=== PATIENT | female | born 1935 | race Caucasian/White ===

== ENCOUNTER 2016-11-07 12:24 | Outpatient (CLI) | payer MEDICARE ==
[~2016-11-07] VITALS: Ht 157.5 cm; Wt 72.3 kg
--- NOTE | ~2016-11-07 | HEMODYNAMI ---
PATIENT:SAUL NAVA MEDICAL RECORD: [id number] : 31 LOCATION:[facility] ADMISSION DATE: 11/07/16 Generatedon:11/07/201616:04 Patient name: SAUL NAVA Patient #: [id number] SSN: : 1935 Date of study: 11/07/2016 Page: Of Hemodynamic Procedure Report Patient Data Patient Demographics Procedure consent was obtained First Name: SAUL Gender: Female Last Name: ELIJAH : 1935 [facility] Initial: DARVIN Age: 81 year(s) Patient #: [id number] Race: Additional ID: [id number] Contact details [address]: [address] [place] [address] State: [place] City: [place] Zip code: [address] Past Medical History Allergies Allergen Reaction Date Comments Reported Other 11/07/2016 Metformen,Lopid,Macrobid,Avandia,Utram allergy Admission Admission Data Admission Date: 11/07/2016 Admission Time: 12:24 Admit Source: Other Height (in.): 62 BSA: 1.73 (m2) Height (cm.): 157.48 BMI: 29.08 (kg/m2) Weight (lbs.): 159 Weight (kg.): 72.12 Medications upon Admission Medications Dosage Times Administered Last Remarks per Delivery Day Date and Time Aspirin Yes 11/07/2016 (any) 0:00 Clopidogrel Yes 11/07/2016 0:00 Lab Results Lab Result Date: 11/07/2016 Lab Result Time: 0:00 Biochemistry Name Units Result Min Max Creatinine mg/dl 1 --(--*-)-- 0.6 1.3 CBC Name Units Result Min Max Hemoglobin g/dl 11.8 *-(----)-- 13.5 17.5 Procedure Procedure Types Cath Procedure Diagnostic Procedure LHC LHC w/Coronaries w/Grafts PCI Procedure Coronary Stent Initial Procedure Description Procedure Date Procedure Date: 11/07/2016 Procedure Start Time: 15:18 Procedure End Time: 15:56 Procedure Staff Name Function Bony Arenas MD Performing Physician Adeline Goldstein RT Scrub Landon Rodgers RN Nurse Joby Scott RT Monitor Jacob Cooper RN Public Relations Director Procedure Data Cath Procedure Fluoroscopy Diagnostic fluoroscopy Total fluoroscopy Time: 7.3 time: 7.3 min min Diagnostic fluoroscopy Total fluoroscopy dose: 691 dose: 691 mGy mGy Contrast Material Contrast Material Type Amount (ml) Isovue 300 141 Entry Location Entry Primary Successful Side Size Upsize Upsize Entry Closure Succes sful Closure Location (Fr) 1 (Fr) 2 (Fr) Remarks Device Remarks Femoral Right 5 Fr 6 Fr artery Short Estimated blood loss: 10 ml Diagnostic catheters Device Type Used For End Catheter Placement Cordis 5Fr JL 4.0 Procedure Catheter (MP) Cordis 5Fr 3DRC Catheter Procedure (MP) Cordis Infinity 5Fr AR Procedure MOD Catheter Cordis Infinity 5Fr LCB Procedure catheter Cordis Infinity 5Fr IM Procedure catheter Cordis 5Fr Pigtail Procedure Catheter (MP) Procedure Complications No complications Procedure Medications Medication Administration Route Dosage Oxygen NC 2 l/min Dextrose 50% I.V. 12.5 g 0.9% NaCl I.V. 100 ml/hr Lidocaine 2% added to field 20 Heparin Flush Bag added to field 2 bags (1000units/500ml NS) Fentanyl I.V. 25 mcg Heparin Bolus I.V. 7000 units Fentanyl I.V. 25 mcg Plavix P.O. 600 mg Hemodynamics Rest BSA: 1.73 (m2) HGB: 11.8 (g/dl) O2 Consumption: Estimated: 154.65 (ml/min) O2 Co nsumption indexed: Estimated:89.39 (ml/min/m) Heart Rate: 70 (bpm) Pressure Samples Time Site Value (mmHg) Purpose Heart Use Rate(bpm) 15:32 LV 154/3,20 Snapshot 79 15:32 AO 155/71(107) Pullback 81 15:32 LV 153/5,23 Pullback 81 Gradients Valve Time Site 1 Site 2 Mean SEP/DFP Peak To Heart Use (mmHg) (sec/min) Peak Rate (mmHg) (bpm) Aortic 15:32 LV AO 0 9 0 81 153/5,23 155/71(107) Calculations Valve P-P Mean Valve Index Valve Source Name Gradient Area Flow (cm2) Aortic 0 0 0 0 Snapshots Pre Cath Intra NCS Post Cath Vital Signs Time Heart Resp SPO2 etCO2 [id number] NIBP (mmHg) Rhythm Pain Sedation Rate (ipm) (%) (mmHg) (mmHg) Status Level (bpm) 14:56:23 68 14 100 0 0 144/66(127) NSR 0 (11) 9(A) , No pain 15:00:22 77 14 100 0 0 113/73(100) NSR 0 (11) 9(A) , No pain 15:05:20 80 15 100 0 0 143/74(99) NSR 0 (11) 9(A) , No pain 15:09:42 80 13 100 0 0 137/65(113) NSR 0 (11) 9(A) , No pain 15:14:02 79 14 100 0 0 136/61(103) NSR 0 (11) 9(A) , No pain 15:19:01 80 15 100 0 0 Measuring NSR 0 (11) 9(A) , No pain 15:19:21 82 15 100 0 0 131/77(116) NSR 0 (11) 9(A) , No pain 15:23:37 77 15 100 0 0 137/69(105) NSR 0 (11) 9(A) , No pain 15:27:53 80 14 100 0 0 133/72(111) NSR 0 (11) 9(A) , No pain 15:32:03 72 14 98 0 0 131/77(97) NSR 0 (11) 9(A) , No pain 15:36:19 80 15 98 0 0 123/68(100) NSR 0 (11) 9(A) , No pain 15:40:31 80 15 98 0 0 119/68(89) NSR 0 (11) 9(A) , No pain 15:44:43 77 14 99 0 0 121/66(99) NSR 0 (11) 9(A) , No pain 15:48:55 79 14 98 0 0 126/67(89) NSR 0 (11) 9(A) , No pain 15:53:07 80 15 99 0 0 133/73(110) NSR 0 (11) 9(A) , No pain 15:57:21 80 15 99 0 0 137/74(102) NSR 0 (11) 9(A) , No pain Medications Time Medication Route Dose Verified Delivered Reason Notes Effectiveness by by 14:55:30 Oxygen NC 2 Bony Buffie used for l/min Misael Rodgers RN procedure 14:55:41 Dextrose 50% I.V. 12.5 Bony Buffie Per physician g Misael Rodgers RN 14:55:58 0.9% NaCl I.V. 100 Bony Buffie Per physician ml/hr Misael Rodgers RN 14:56:23 Lidocaine 2% added 20ml Bony Bony for local to vial Misael Arenas MD anesthetic field 14:56:31 Heparin Flush added 2 Bony Bony used for Bag to bags Misael Arenas MD procedure (1000units/500ml field NS) 15:27:51 Fentanyl I.V. 25 Bony Buffie for sedation mcg Misael Rodgers RN 15:44:58 Heparin Bolus I.V. 7,000 Bony Buffie for verifi ed units Misael Rodgers RN anticoagulation with dr arenas 15:45:35 Fentanyl I.V. 25 Bony Buffie for sedation mcg Misael Rodgers RN 16:02:47 Plavix P.O. 600 Bony Buffie for mg Misael Rodgers RN antiplatelet therapy Procedure Log Time Note 14:40:05 Admit Source: Other 14:40:16 Patient Height : 62 cm 14:40:19 Patient Weight : 159 kg 14:40:52 Lab Result : Hemoglobin 11.8 g/dl 14:40:52 Lab Result : Creatinine 1 mg/dl 14:41:28 Jacob Cooper RN sent for patient. Start room use. 14:41:30 Time tracking: Regular hours 14:41:34 Plan of Care:Hemodynamics will remain stable., Cardiac rhythm will remain stable., Comfort level will be maintained., Respiratory function will remain adequate., Patient/ family verbilizes understanding of procedure., Procedure tolerated without complication., Recovers from procedure without complications.. 14:45:53 Patient received from Outpatients to [facility] 2 Alert and oriented. Tansferred to table in Supine position. 14:45:54 Warm blankets applied, and barbie hugger turned on for patient comfort. 14:45:56 Correct patient and procedure confirmed by team. 14:46:00 Signed procedure consent form obtained from patient. 14:46:01 ECG and BP/O2 sat monitors applied to patient. 14:46:03 Full Disclosure recording started 14:55:02 Vital chart was started 14:55:30 Oxygen 2 l/min NC was given by Landon Rodgers RN; used for procedure; 14:55:41 Dextrose 50% 12.5 g I.V. was given by Landon Rodgers RN; Per physician; 14:55:58 0.9% NaCl 100 ml/hr I.V. was given by Landon Rodgers RN; Per physician; 14:56:23 Lidocaine 2% 20ml vial added to field was given by Bony Arenas MD; for local anesthetic; 14:56:31 Heparin Flush Bag (1000units/500ml NS) 2 bags added to field was given by Bony Arenas MD; used for procedure; 14:57:21 Baseline sample Acquired. 14:57:28 Baseline sample Acquired. 14:57:31 Baseline sample Acquired. 14:57:32 Baseline sample Acquired. 14:57:34 Baseline sample Acquired. 14:57:42 Rhythm: sinus rhythm 14:59:42 H&P Date Dictated: 10/31/2016 Within 30 days and on chart., H&P Addendum completed by physician on day of procedure. (MUST COMPLETE FOR ALL OUTPATIENTS). 15:00:09 Pre-procedure instructions explained to patient. 15:00:10 Pre-op teaching completed and patient verbalized understanding. 15:00:11 Family in waiting room. 15:00:13 Patient NPO since Midnight. 15:00:39 Patient allergic to Other allergyMetformen,Lopid,Macrobid,Avandia,Utram 15:00:42 Is the patient allergic to Iodine/contrast media? No. 15:00:44 Is patient on blood thinner?Yes 15:00:48 ACC The patient was administered the following blood thiners within the last 24 hours: ACCAspirin, ACCPlavix 15:00:49 Patient diabetic? Yes. 15:00:50 If diabetic: On Metformin? No 15:00:52 Previous problem with sedation/anesthesia? No ? 15:00:53 Snore? No 15:01:05 Sleep apnea? No 15:01:06 Deviated septum? No 15:01:07 Opens mouth fully? Yes 15:01:07 Sticks out tongue? Yes 15:01:12 Airway obstruction? Yes COPD 15:01:18 Dentures? Yes In tight 15:01:30 Pre procedure: right dorsailis pedis pulse 2+ Normal; easily identifiable; not easily obliterated 15:01:33 Patient pain scale 0/10 ?. 15:01:36 IV patent on arrival in left hand with 0.9% NaCl at [facility]. 15:01:41 Lab results completed and on chart. 15:01:44 Right groin area was prepped with chlora-prep and draped in sterile fashion 15:01:45 Alarms reviewed by R. N. 15:01:45 Sharps counted by scrub and verified by R.N. 15:01:48 Use device set Femoral Dx 15:01:51 Tegaderm 4 x 4 opened to sterile field. 15:01:51 Acist Manifold opened to sterile field. 15:01:52 Acist Hand Control opened to sterile field. 15:01:53 Acist Syringe opened to sterile field. 15:01:53 Bag Decanter opened to sterile field. 15:01:54 Cardinal Cath Pack opened to sterile field. 15:01:54 Terumo 5Fr Oronoco Sheath opened to sterile field. 15:01:55 St [place] 260cm J .035 wire opened to sterile field. 15:01:56 Cordis Infinity 5Fr Multipack catheter opened to sterile field. 15:02:50 ACC Patient presents with Stable Angina CCS Anginal Class 3--Marked limitation of physical activity, angina occurs with ordinary activity.. 15:08:03 Zero performed for pressure channel P1 15:10:19 --------ALL STOP TIME OUT------ 15:10:20 Final Timeout: patient, procedure, and site verified with staff and physician. All members of the team are in agreement. 15:10:23 Right groin site verified by team. 15:10:26 Physical assessment completed. ASA score P 2 - A patient with mild systemic disease as per Bony Arenas MD. 15:10:30 Sedation plan: IV Moderate Sedation Versed, Fentanyl 15:11:09 Zero performed for pressure channel P1 15:11:17 Zero performed for pressure channel P1 15:11:29 Zero performed for pressure channel P1 15:13:38 Baseline sample Acquired. 15:18:50 Procedure started. 15:18:53 Local anesthetic to right femoral artery with Lidocaine 2% by Bony Arenas MD.INITIAL ACCESS ONLY 15:19:14 A 5 Fr sheath was inserted into the Right Femoral artery 15:21:02 A Cordis 5Fr JL 4.0 Catheter (MP) was advanced over the wire and used for Procedure. 15:21:34 LCA angiography performed. 15:22:54 Catheter exchanged over wire. 15:23:36 A Cordis 5Fr 3DRC Catheter (MP) was advanced over the wire and used for Procedure. 15:24:11 RCA angiography performed. 15:25:20 Catheter exchanged over wire. 15:25:24 A Cordis Infinity 5Fr AR MOD Catheter was advanced over the wire and used for Procedure. 15:25:25 Catheter removed. unable to cannulate vessel. 15:26:46 Catheter exchanged over wire. 15:27:51 Fentanyl 25 mcg I.V. was given by Landon Rodgers RN; for sedation; 15:28:00 A Cordis Infinity 5Fr LCB catheter was advanced over the wire and used for Procedure. 15:28:58 SVG to Diag and OM angiography performed. 15:29:02 Catheter exchanged over wire. 15:29:17 A Cordis Infinity 5Fr IM catheter was advanced over the wire and used for Procedure. 15:30:32 MACK to LAD angiography performed. 15:30:56 A Cordis 5Fr Pigtail Catheter (MP) was advanced over the wire and used for Procedure. 15:31:56 LV hemodynamics recorded. 15:31:57 LV gram done using CASTANON 15:32:34 EF : 55 % 15:32:59 Injector settings: Ml/sec: 10, Volume: 20, 15:41:29 Terumo 6Fr Oronoco Sheath opened to sterile field. 15:41:40 Richmond BMW [place] 2 J-tip 300cm 0.014 guide wir opened to sterile field. 15:41:51 High Pressure Extension Tubing (Misael) opened to sterile field. 15:41:59 [employer]Books BasixCompak Inflation Kit opened to sterile field. 15:43:55 Catheter removed. 15:44:08 Sheath upsized to a 6 Fr Short. 15:44:24 6 Fr xblad 3.5 guide catheter was inserted over the wire 15:44:58 Heparin Bolus 7,000 units I.V. was given by Landon Rodgers RN; for anticoagulation; verified with dr arenas 15:45:35 Fentanyl 25 mcg I.V. was given by Landon Rodgers RN; for sedation; 15:45:37 bmw wire advanced. 15:45:50 Wire advanced across lesion. 15:49:21 Cordis 6FR XBLAD 3.5 guide catheter opened to sterile field. 15:50:51 Inflation Number: 1 A Medtronic Integrity 2.5 x 14 stent was prepped and advanced across the 2nd Ob Gail. The stent was deployed at 14 NANCY for 0:10 (min:sec). 15:51:32 ACC PCI Site: OM2 has 80% stenosis. 15:51:37 ACC Pre-intervention GALLITO Flow is 1. 15:51:44 ACC Post-intervention GALLITO Flow is 3. 15:52:36 Stent catheter was removed intact over wire. 15:52:36 Wire removed. 15:52:37 Guide catheter removed. 15:53:13 Cordis 6Fr Exoseal opened to sterile field. 15:54:56 Procedure ended.(Physican Out) 15:55:09 Fluoroscopy time 07.30 minutes. 15:55:19 Fluoroscopy dose: 691 mGy 15:55:19 Flurop Dose total: 691 15:55:23 Contrast amount:Isovue 300 141ml. 15:55:24 Sharps counted by scrub and verified by R.N. 15:55:28 Insertion/operative site no bleeding no hematoma. 15:55:30 Post-op/insertion site Right Femoral artery dressed using a 4 x 4 and Tegaderm. 15:55:34 Post right femoral artery:stable, soft, clean and dry 15:55:36 Post Procedure Pulses reassessed and unchanged 15:55:39 Post-procedure physical assessment completed. ASA score P 2 - A patient with mild systemic disease as per Bony Arenas MD. 15:55:41 Post procedure rhythm: unchanged. 15:55:45 Estimated blood loss: 10 ml 15:55:46 Post procedure instruction explained to patient.Patient verbalizes understanding. 15:55:47 Patient needs reinforcement of post procedure teaching. 15:55:59 Procedure type changed to Cath procedure, Diagnostic procedure, LHC, LHC w/Coronaries w/Grafts, PCI procedure, Coronary Stent Initial 15:56:28 Procedure and supply charges have been captured, reviewed, submitted and are correct. 15:56:30 Procedure Complication : No complications 15:56:33 Vital chart was stopped 15:56:34 See physician's report for complete and final results. 15:56:35 Report given to Outpatients. 15:56:39 Patient transfered to Outpatients with Stretcher. 15:56:41 Procedure ended. 15:56:41 Full Disclosure recording stopped 15:57:01 ACC-PCI Only Patient was given prescriptions, or instructed by Bony Arenas MD to start/continue the following medications upon discharge: Plavix 15:57:06 End room use (Document Last) 16:02:47 Plavix 600 mg P.O. was given by Landon Rodgers RN; for antiplatelet therapy; Intervention Summary Intervention Notes Time ActionType Lesion and Equipment Action# Pressure Duration Attributes Used 15:50:[address] stent 2nd Ob Gail Medtronic 1 14 00:10 Integrity 2.5 x 14 stent Device Usage Item Name Manufacture Quantity Catalog Hospital Part Current Minimal Lot# / Number Charge Number Stock Stock Serial# Code Tegaderm 4 3M 1 1626W [id number] [id number] [id number] 5 x 4 Acist Acist 1 62215 234364 786116 510858 5 Manifold Medical Systems Inc Acist Hand Acist 1 89189 787541 113979 099355 5 Control Medical Systems Inc Acist Acist 1 00629 881986 161108 482459 20 Syringe Medical Systems Inc Bag Microtek 1 2002S 984755 79884 278972 5 DecGlobalPrint Systems Medical Inc. Cardinal Cardinal [address] [address] 15129 413624 5 Cath Pack Health Terumo 5Fr Terumo 1 [id number] 493484 098156 972066 [address] [place] [address] [place] 1 686077 302140 995933 181789 30 260cm J .035 wire Cordis Cardinal 1 [id number] 611558 56981 500510 30 SeeVolution Health 5Fr Multipack catheter Cordis 5Fr Cardinal 1 227284 5 JL 4.0 Health Catheter (MP) Cordis 5Fr Cardinal 1 216325 5 3DRC Health Catheter (MP) Cordis Cardinal 1 [id number] 018953 973516 801306 15 SeeVolution Health 5Fr AR MOD Catheter Cordis Cardinal 1 [id number] 545936 271055 136228 5 Infinity Health 5Fr LCB catheter Cordis Cardinal 1 [id number] 851056 020486 123981 5 Infinity Health 5Fr IM catheter Cordis 5Fr Cardinal 1 101940 5 Pigtail Health Catheter (MP) Terumo 6Fr Terumo 1 RTH763 916617 854387 114473 40 Oronoco Sheath [place] [employer] [place] 1 [id number] 418134 876122 874155 5 [place] 2 Vascular J-tip 300cm 0.014 guide wir High Merit 1 [id number] 863417 32491 264888 10 Pressure Medical Extension Tubing (Arenas) Merit Merit 1 [place] 674002 961553 246153 15 BasixCompak Medical Inflation Kit Cordis 6FR Cardinal 1 [id number] 956808 846389 579292 10 XBLAD 3.5 Health guide catheter Medtronic Medtronic 1 [id number] 193717 382450 9 [id number] Integrity 2.5 x 14 stent Cordis 6Fr Cardinal 1 EX600 421401 015594 304282 10 [employer] Signature Audit [place] Stage Time Signature Unsigned Intra-Procedure 11/07/2016 Joby Scott 4:04:15 PM RT(R) Signatures Monitor : Joyb Scott RT Signature : Date : Time : [id number] [place] [address]
[2016-11-07 13:47] LABS: BASOPHILS 0.1 % (0.0-2.0); EOSINOPHILS 3.2 % (0-7); HEMATOCRIT 36.6 % (36.0-48.0); HEMOGLOBIN 11.8 g/dL (12-16); IMMATURE GRANULOCYTES 0.1 % (0-5); LYMPHOCYTES 23.8 % (15-50); MCH 31.5 pg (26.0-34.0); MCHC 32.2 g/dL (31.0-37.0); MCV 97.6 fL (80.0-100.0); MEAN PLATELET VOLUME 10.3 fL (7.4-10.4); MONOCYTES 8.9 % (2-11); NEUTROPHILS 63.9 % (40-80); PLATELET COUNT 202 10x3/uL (130-400); RBC 3.75 10x6/uL (4.00-5.40); RDW 12.9 % (11.5-14.5); WBC 7.3 10x3/uL (4.8-10.8)
[2016-11-07] MEDS ORDERED: NOVOLOG100 U/M1 SC (13:47)
[2016-11-07] MEDS ORDERED: NITROSTAT0.4 MG SL (13:49)
[2016-11-07] MEDS ORDERED: HYDROCODONE-APA1 TAB PO (13:50)
[2016-11-07] MEDS ORDERED: CYMBALTA20 MG PO (13:50)
[2016-11-07] MEDS ORDERED: NEURONTIN 400400 MG PO (13:50)
[2016-11-07] MEDS ORDERED: PROTONIX40 MG PO (13:51)
[2016-11-07] MEDS ORDERED: BAYER CHEWABLE81 MG PO (13:52)
[2016-11-07] MEDS ORDERED: PLAVIX75 MG PO (13:52)
[2016-11-07] MEDS ORDERED: VITAMIN E400 UNI2 PO (13:53)
[2016-11-07] MEDS ORDERED: SINEMET 25-1001 EACH PO (13:54)
[2016-11-07] MEDS ORDERED: TRIMETHOPRIM100 MG PO (13:55)
[2016-11-07] MEDS ORDERED: LISINOPRIL2.5 MG PO (13:55)
[2016-11-07] MEDS ORDERED: COREG25 MG PO (13:55)
[2016-11-07] MEDS ORDERED: ZANTAC300 MG PO (13:56)
[2016-11-07] MEDS ORDERED: KEPPRA250 MG PO (13:57)
[2016-11-07] MEDS ORDERED: FUROSEMIDE20 MG PO (13:57)
[2016-11-07 14:08] LABS: ANION GAP 9.8 mmol/L (8-16); CALCIUM 8.2 mg/dL (8.5-10.1); POTASSIUM - SERUM 4.8 mmol/L (3.5-5.1)
[2016-11-07 14:09] VITALS: BP 148/63; Ht 157.5 cm; Wt 72.3 kg
--- NOTE | 2016-11-07 14:19 | NUR ---
1415 CALLED ARCHIVES DIRECTOR WITH LOW BLOOD SUGAR, PATIENT AROUSABLE BUT SWEATY, NO ACUTE DISTRESS. WILL AWAIT ORDERS. 1420 RECIEVED ORDER FOR D50W 1/[address] ESQUIVEL AND GIVEN IN IV.
--- NOTE | 2016-11-12 15:45 | OP ---
PATIENT NAME: SAUL NAVA MEDICAL RECORD: [id number] :31 LOCATION:D.CAT ADMISSION DATE: SURGEON: BISHNU ESQUIVEL M.D. DATE OF OPERATION: 11/07/2016 Catheterization Report PROCEDURES PERFORMED: 1. Selective coronary angiography. 2. Left heart catheterization with ventriculogram. 3. PTCA and stent placed in the circumflex. 4. Bypass angiography. 5. Left internal mammary artery injection. INDICATION: An 81-year-old woman presents with recurrent angina. EQUIPMENT USED: Diagnostic 5-Algerian JL4, AR modified catheter, mammary catheter, pigtail catheter. INTERVENTION: A 6-Algerian XB LAD guide, BMW guide wire, 2.5 x 14 mm Integrity stent. TECHNIQUE: A 5-Algerian sheath was inserted in retrograde fashion in the right common femoral artery. Next, selective coronary angiography was performed in standard views using 5-Algerian JL4 and Franko right. Left heart catheterization was performed using pigtail catheter. The internal mammary was selected with internal mammary catheter. Bypass angiography was performed using an AR modified catheter. CORONARY ANATOMY: 1. Left main: Left main trunk is moderate in caliber. It gives rise to the LAD and circumflex. It has no obstruction. 2. LAD: This vessel is 100% occluded in the proximal segment. There is competitive flow seen to this area. 3. Circumflex: This vessel is large in caliber and dominant. The first lateral branch is 100% occluded. There is competitive flow seen to this area. Continuation of the posterolateral branch has an 80% stenosis. 4. Right coronary: This vessel is small in caliber and nondominant. It is angiographically normal. 5. Saphenous vein graft to circumflex. This is actually a skip graft touching down on the first diagonal branch as well as the lateral branch and circumflex. Both limbs are widely patent. However, this graft does not fill the AV continuation of the circumflex. 6. Left internal mammary artery to LAD: This graft is widely patent throughout its course. 7. Left ventricle: Left ventricle is normal in size and function. No wall motion abnormalities are seen. Estimated ejection fraction is 55%. DESCRIPTION OF INTERVENTION: It was felt the patient's symptoms are secondary to the distal lesion in the circumflex, which is not protected by the bypass graft. At this point, a 6-Algerian sheath was inserted in retrograde fashion in the right common femoral artery. A 100 units per kilogram of heparin was infused. A 6-Algerian XB LAD guide was advanced and engaged in the left main coronary artery. Next, a BMW wire was placed in the distal circumflex. The posterolateral branch was stented with a 2.5 x 14 mm Integrity stent at 14 OPERATIVE REPORT [id number] HEAD,SAUL palomo. Injection reveals stent to be widely patent with 0% residual stenosis. There is marked improvement in distal flow. At this point, the wire and guide were removed. IMPRESSION: Successful percutaneous transluminal coronary angioplasty and stent in the circumflex with 0% residual stenosis. TRANSINT:[id number] Voice Confirmation ID: [id number] DOCUMENT ID: [id number] BISHNU ESQUIVEL M.D. at 1545 CC: [id number] DICTATION DATE: 11/07/16 1600 INTERIOR DESIGN FACULTY MEMBER: 11/07/16 1613 DEP CLI 11/07/16 [id number] [place] [address]
== END 2016-11-07 20:05 | disposition home or self-care (01) ==
LOC: D.CATH 12:24
PROVIDERS: Internal Medicine Cardiovascular Disease
DX: I25.119 Atherosclerotic heart disease of native coronary artery with unspecified angina pectoris (principal); Z95.1 Presence of aortocoronary bypass graft

== ENCOUNTER → 2016-11-27 12:28 | Outpatient (CLI) | payer MEDICARE ==
[2016-11-07 14:09] VITALS: BMI 29.1
[~2016-11-27 12:28] MED LIST: BAYER CHEWABLE81 MG PO; COREG25 MG PO; CYMBALTA20 MG PO; FUROSEMIDE20 MG PO; HYDROCODONE-APA1 TAB PO; KEPPRA250 MG PO; LISINOPRIL2.5 MG PO; NEURONTIN 400400 MG PO; NITROSTAT0.4 MG SL; NOVOLOG100 U/M1 SC; PLAVIX75 MG PO; PROTONIX40 MG PO; SINEMET 25-1001 EACH PO; TRIMETHOPRIM100 MG PO; VITAMIN E400 UNI2 PO; ZANTAC300 MG PO
--- NOTE | 2016-12-09 07:17 | EEG ---
PATIENT:SAUL NAVA DATE OF SERVICE: 11/27/16 MEDICAL RECORD: [id number] DATE OF : [birth year] LOCATION: [facility] ADMISSION DATE: 11/27/16 REFERRING PHYSICIAN: INTERPRETING PHYSICIAN: AURA OLIVA MD DATE OF SERVICE: 11/27/2016 Referred by myself as an outpatient. ELECTROENCEPHALOGRAM NUMBER: [id number]. DATE OF EXAMINATION: 11/27/2016 at 1:00 p.m. DATE OF : 1935. TECHNICAL DATA: This electroencephalographic recording consisted of approximately 20 minutes of data collection utilizing the international 10/20 system of electrode placement and both referential and non-referential montages. Sixteen channels of electrocerebral recording are accompanied by a 17th channel dedicated to the electrocardiographic rhythm and to 2 channels of electromyographic recording. Recording is performed in the awake and drowsy states utilizing activation by photic stimulation. ELECTROENCEPHALOGRAPHIC DATA: The awake state comprises only approximately 10% of the recorded electrocerebral activity. Electromyographic artifact is prominent and rapid eye movements are seen. The posterior dominant background consists of a symmetric semi-arrhythmic waxing and waning 7-8 Hz alpha activity, which is suppressed by eye opening. The drowsy state comprises the remaining portion of the recorded electrocerebral activity. Electromyographic artifact is diminished and rapid eye movements are not seen. The posterior dominant background tends more towards 7 Hz. No abnormal or focal slowing is identified. No epileptiform discharges are seen. Photic stimulation induces no abnormal change in the recorded electrocerebral activity. INTERPRETATION: Normal (awake and drowsy). This is a normal electroencephalographic recording. TRANSINT:[id number] Voice Confirmation ID: [id number] DOCUMENT ID: [id number] AURA OLIVA MD at 0717 CC: [id number] DICTATION DATE: 11/28/16 0903 EQUIPMENT VALIDATION SPECIALIST: 11/28/16 1048 DEP CLI 11/27/16 [id number] [place] [address]
== END | disposition home or self-care (01) ==
LOC: D.CN 12:28
DX: G40.802 Other epilepsy, not intractable, without status epilepticus (principal); G20 Parkinson's disease; G60.9 Hereditary and idiopathic neuropathy, unspecified

== ENCOUNTER → 2016-12-19 18:02 | Outpatient (CLI) | payer MEDICARE ==
[2016-11-07 14:09] VITALS: BMI 29.1
== END | disposition home or self-care (01) ==
LOC: D.CT 18:02
DX: N39.0 Urinary tract infection, site not specified (principal)

== ENCOUNTER → 2017-05-31 14:19 | Outpatient (CLI) | payer MEDICARE ==
[2016-11-07 14:09] VITALS: BMI 29.1
[2017-05-31 15:06] LABS: APPEARANCE CLEAR (CLEAR); COLOR YELLOW (YELLOW)
[2017-05-31 15:07] LABS: BILIRUBIN NEGATIVE (NEGATIVE); GLUCOSE NEGATIVE (NEGATIVE); KETONE NEGATIVE (NEGATIVE); LEUKOCYTE ESTERASE NEGATIVE (NEGATIVE); NITRITE NEGATIVE (NEGATIVE); PROTEIN TRACE mg/dL (NEGATIVE); UROBILINOGEN NORMAL (NORMAL)
== END | disposition home or self-care (01) ==
LOC: D.LABREF 14:19
PROVIDERS: Student in an Organized Health Care Education/Training Program
DX: N39.0 Urinary tract infection, site not specified (principal)

== ENCOUNTER 2017-06-04 15:50 | Inpatient (IN) | payer MEDICARE ==
[~2017-06-04] VITALS: Ht 157.5 cm; Wt 73.6 kg
[2017-06-04 17:05] LABS: BASOPHILS 0.1 % (0-2); EOSINOPHILS 3.3 % (0-7); HEMATOCRIT 33.6 % (36.0-48.0); HEMOGLOBIN 11.1 g/dL (12-16); IMMATURE GRANULOCYTES 0.2 % (0-5); MCH 31.5 pg (26.0-34.0); MCV 95.5 fL (80.0-100.0); MEAN PLATELET VOLUME 9.5 fL (7.4-10.4); NEUTROPHILS 68.4 % (40-80); PLATELET COUNT 162 10x3/uL (130-400); RBC 3.52 10x6/uL (4.00-5.40); RDW 12.5 % (11.5-14.5); WBC 8.8 10x3/uL (4.8-10.8)
[2017-06-04 17:23] LABS: INR 0.99 (0.85-1.17)
[2017-06-04 17:24] LABS: APTT 29.3 SECONDS (22.8-39.4)
[2017-06-04 17:31] LABS: ALBUMIN 3.3 g/dL (3.4-5.0); ALKALINE PHOSPHATASE 85 U/L (46-116); ALT (SGPT) 14 U/L (10-68); BILIRUBIN - TOTAL 0.34 mg/dL (0.2-1.3); CALC OSMOLALITY 284 mosm/kg (275-300); CARBON DIOXIDE 33.2 mmol/L (21.0-32.0); CHLORIDE - SERUM 105 mmol/L (98-107); CREATININE - SERUM 0.7 mg/dL (0.6-1.3); POTASSIUM - SERUM 3.7 mmol/L (3.5-5.1); PROTEIN - SERUM 6.5 g/dL (6.4-8.2); SODIUM 143 mmol/L (136-145); UREA NITROGEN 17 mg/dL (7-18); eGFR NON AFRICAN AMERICAN 84 mL/min (90-120)
[2017-06-04 17:32] LABS: GLUCOSE 70 mg/dL (74-106)
[2017-06-04 17:45] LABS: CKMB 0.4 U/L (0.0-3.6); CREATINE KINASE 40 UL (21-215)
[2017-06-04 17:49] LABS: TROPONIN-I < 0.017 ng/mL (0.000-0.060)
[2017-06-04 18:36] LABS: APPEARANCE CLOUDY (CLEAR); COLOR YELLOW (YELLOW)
[2017-06-04 18:37] LABS: BILIRUBIN NEGATIVE (NEGATIVE); GLUCOSE NEGATIVE (NEGATIVE); KETONE NEGATIVE (NEGATIVE); LEUKOCYTE ESTERASE NEGATIVE (NEGATIVE); NITRITE NEGATIVE (NEGATIVE); PROTEIN NEGATIVE (NEGATIVE); SPECIFIC GRAVITY 1.025 (1.005-1.020); UROBILINOGEN NORMAL (NORMAL)
--- NOTE | 2017-06-04 21:40 | NUR ---
PT ARRIVED TO ROOM WITH ER NURSE, PT ALERT AND ORIENTED.
--- NOTE | 2017-06-05 01:50 | NUR ---
PT C/O PAIN IN LEG, A LEVEL OF 7, PAGE AIRCRAFT BODY REPAIRER.
--- NOTE | 2017-06-05 01:58 | NUR ---
NURSE PRACTICAL CALL BACK AND PRESCRIBED TYLENOL 500 MG FOR PT. GIVEN TYLENOL 500 MG FOR PT.
--- NOTE | 2017-06-05 03:49 | NUR ---
REST QUIETLY IN BED, EYE CLOSE, CALL LIGHT WITHIN REACH.
[2017-06-05 04:00] VITALS: BP 193/78
--- NOTE | 2017-06-05 05:01 | NUR ---
CREDIT OR LOANS OFFICER REPORT PT'S BP IS 193/78, AND HAS A LOT OF PAIN, PAGE PHOTOGRAPHIC AIDE, CHRIS ESPITIA.
--- NOTE | 2017-06-05 05:23 | NUR ---
NURSE PRACTITIONER CALL BACK, AND ORDER LISINOPRIL 2.5MG AND HYDROCODONE 10 FOR PT.
--- NOTE | 2017-06-05 06:21 | NUR ---
PT LYING IN BED, EYES CLOSED, RESPIRATIONS EVEN AND UNLABORED. CONTINUE TO MONITOR CLOSELY. BED LOW, CALL LIGHT IN REACH, SIDE RAILS X 2, HOB 30 DEGREES.
[2017-06-05 06:41] VITALS: BP 155/63; BMI 28.2
[2017-06-05 08:00] VITALS: BP 166/64
--- NOTE | 2017-06-05 08:09 | NUR ---
[facility]- RECEIVED REPORT FROM AIR CONDITIONING SHEET METAL INSTALLER NURSE JOSE ALFREDO. PT IS CURRENTLY LAYING IN BED ON BACK WITH EYES OPEN WATCHING TV. PT DENIES ANY PAIN BUT STATES SHE HAS HEADACHE. ON 02 AT 2L VIA NC. ON MONITOR SHOWING SR, HR 61. IV SEEN TO LEFT AC WITH NS RUNNING AT 75CC. NO NEED AT CURRENT TIME. WILL CONTINUE TO MONITOR AND CONTINUE WITH PLAN OF CARE.
[2017-06-05 12:00] VITALS: BP 115/70
--- NOTE | 2017-06-05 12:12 | NUR ---
PTS CAME UP TO NURSES STATION UPSET THAT PT HAS NOT RECEIVED HER HOME MEDICATIONS. I INFORMED PTS (JUST LIKE I EXPLAINED TO PT EARLIER ON SHIFT) THAT THE DOCTOR HAS TO MAKE ROUNDS AND SEE PT AND THEN THE DOCTOR WILL RESTART HOME MEDICATIONS THAT THE DOCTOR WANTS PT TO TAKE. STATES, "WELL CAN WE GIVE HER HER MEDICATIONS". OBED CLAIRE, UNIT MAMAGER ON UNIT RIGHT BESIDE THIS NURSE PTS IS STATING THIS TO US. OBED CLAIRE, ROLL UP HELPER INFORMS PTS THAT NO, IT IS NOT A GOOD IDEA TO GIVE PT HER MEDICATIONS DUE TO DOCTOR NOT SEEING PT YET. BROUGHT LIST OF HOME MEDICATIONS TO NURSES STATION. OBED CLAIRE, ROLL UP HELPER IN PTS ROOM NOW GOING OVER HOME MEDICATIONS AND UPDATED HOME MED REC LIST. WILL CONTINUE TO MONITOR.
[2017-06-05] MEDS ORDERED: KLOR-CON/EF 2525 MEQ PO (12:16)
[2017-06-05] MEDS ORDERED: LANTUS SOL100 UNIT/1 SC (12:21)
--- NOTE | 2017-06-05 12:46 | NUR ---
OBED CLAIRE, MASTER AUTOMOTIVE TECHNICIAN STATES PT IS IN ROOM DRY HEAVING. THIS NURSE GAVE PT PRN ZOFRAN ORDERED. PT STATES SHE IS SWEATING BECAUSE IT IS SO HOT IN HER ROOM. I TURNED AC DOWN. PT DENIES CHEST PAIN. EKG ORDERED AND PLACED IN CHART. CALL LIGHT IS IN REACH. WILL CONTINUE TO MONITOR.
[2017-06-05 12:47] LABS: CKMB 0.4 U/L (0.0-3.6); CREATINE KINASE 34 UL (21-215)
[2017-06-05 12:49] LABS: TROPONIN-I < 0.017 ng/mL (0.000-0.060)
[2017-06-05 13:13] VITALS: Ht 157.5 cm; Wt 73.6 kg
--- NOTE | 2017-06-05 15:00 | NUR ---
PT IS CURRENTLY SITTING UP IN BED WITH EYES OPEN RESTING. WILLARD SPEECH PATHOLOGY IN ROOM NOW ASSISTING PT ON IPAD WITH INTERNET. PT DENIES ANY NEED AT CURRENT TIME. CALL LIGHT IS IN REACH. WILL CONTINUE TO MONITOR.
[2017-06-05 16:00] VITALS: BP 104/68
--- NOTE | 2017-06-05 16:12 | NUR ---
SCD'S PLACED ON PT.
--- NOTE | 2017-06-05 17:10 | NUR ---
SECOND IV STARTED PER PT REQUEST. 22G IV INSERTED INTO PTS RIGHT HAND X1 STICK. TOLERATED WELL. IV FLUIDS STARTED TO NEW IV TO RIGHT HAND. IV TO LEFT AC SALINE LOCKED.
[2017-06-05 18:13] LABS: CKMB 0.2 U/L (0.0-3.6); CREATINE KINASE 34 UL (21-215); TROPONIN-I < 0.017 ng/mL (0.000-0.060)
--- NOTE | 2017-06-05 18:40 | NUR ---
PT IS CURRENTLY SITTING UP IN BED WITH EYES OPEN RESTING. DAUGHTER AND SON-IN-LAW IN ROOM WITH PT. SON-IN-LAW AND DAUGHTER ARE C/O OF [employer]UE[employer] CHA[employer] NOT BEING IN ROOM. DAUGHTER STATES "WE HAD ONE OUT IN THE CHAMBERS EARLIER". I INFORMED DAUGHTER THAT THE CHAIR WAS ACTUALLY BEING USED BY A DIFFERENT ROOM THAT HAD INITALLY HAD THAT SPECIFIC CHAIR AND I WOULD GET THEM ANOTHER ONE. WENT AND RECEIVED ANOTHER CHAIR THAT WAS NOT BEING USED. DAUGHTER AND SON-IN-LAW THANKED ME. NO FURTHER NEED AT CURRENT TIME. DR. DELGADILLO IS NOW IN ROOM. WILL CONTINUE TO MONITOR.
[2017-06-05 19:00] VITALS: BP 172/72
--- NOTE | 2017-06-05 20:12 | NUR ---
PORFIRIO WITH RADIOLOGY CALLED TO VERIFY NEW ORDER FROM DR. DELGADILLO FOR MRI OF THE BRAIN W/WO CONTRAST. I REVIEWED THE REASONS FOR THE ORDER WITH PORFIRIO AT WHICH TIME SHE STATED THAT IT WAS ORDERED ROUTINE AND WOULD DO IT TOMORROW.
[2017-06-06] VITALS: BP 171/76
[2017-06-06 00:03] LABS: CKMB 0.4 U/L (0.0-3.6); CREATINE KINASE 39 UL (21-215)
[2017-06-06 00:06] LABS: TROPONIN-I < 0.017 ng/mL (0.000-0.060)
--- NOTE | 2017-06-06 03:21 | NUR ---
NURSE ROUNDS 06/05/17 20:00 - PT LYING IN BED, AWAKE, ALERT, ORIENTED, ON HER IPAD, C/O RIGHT HAND IV PLACEMENT. I TAPED IV TUBING TO HAND WHICH HELPED. PT ALSO REQUESTED TO HAVE HER SCD'S REMOVED AND SOCKS OFF ONCE IN BED FOR THE NIGHT, STATING SHE IS TOO HOT AND THEY CONSTRICT HER TOO MUCH. CONTINUE TO MONITOR CLOSELY. BED LOW, CALL LIGHT IN REACH, SIDE RAILS X 2, HOB 30 DEGREES. PT TO ALL WITH ANY NEEDS.
[2017-06-06 04:00] VITALS: BP 168/68
--- NOTE | 2017-06-06 05:16 | NUR ---
PT RESTING COMFORTABLY, EASILY ROUSABLE TO VERBAL STIMULI. CONTINUE TO MONITOR CLOSELY.
[2017-06-06 05:56] LABS: BASOPHILS 0.1 % (0-2); EOSINOPHILS 2.8 % (0-7); HEMATOCRIT 33.3 % (36.0-48.0); IMMATURE GRANULOCYTES 0.1 % (0-5); LYMPHOCYTES 23.8 % (15-50); MCH 31.4 pg (26.0-34.0); MCV 95.1 fL (80.0-100.0); MEAN PLATELET VOLUME 9.8 fL (7.4-10.4); MONOCYTES 8.5 % (2-11); NEUTROPHILS 64.7 % (40-80); PLATELET COUNT 153 10x3/uL (130-400); RDW 12.5 % (11.5-14.5); WBC 6.7 10x3/uL (4.8-10.8)
[2017-06-06 06:21] LABS: ALBUMIN 2.8 g/dL (3.4-5.0); ANION GAP 8.2 mmol/L (8-16); BILIRUBIN - TOTAL 0.4 mg/dL (0.2-1.3); CALCIUM 7.3 mg/dL (8.5-10.1); CARBON DIOXIDE 30.6 mmol/L (21.0-32.0); CREATININE - SERUM 0.8 mg/dL (0.6-1.3); POTASSIUM - SERUM 3.8 mmol/L (3.5-5.1); PROTEIN - SERUM 5.5 g/dL (6.4-8.2)
--- NOTE | 2017-06-06 07:39 | NUR ---
0730- DR. OLIVA ON UNIT. DR. OLIVA STATES TO CHECK PTS BS AND BP NOW DUE TO PT NOT FEELING WELL AND PTS SKING BEING CLAMMY. THIS NURSE CHECKED PTS BS WHICH IS 127 AND BLOOD PRESSURE AT REST IS 158/85. PT IS UP TO BATHROOM NOW. DR. OLIVA ON UNIT, INFORMED HIM OF THIS. NO NEW ORDERES RECEIVED.
[2017-06-06 08:00] VITALS: BP 173/79
--- NOTE | 2017-06-06 08:00 | NUR ---
0715- AM ROUNDING- RECEIVED REPORT FROM TEN PIN BOWLING CENTRE MANAGER NURSE OTTO. PT IS CURRENTLY LAYING IN BED ON BACK WITH EYES CLOSED RESTING. ON 02 AT 2L VIA NC. ON MONITOR SHOWING SR, HR 73. IV SEEN TO LEFT AC THAT IS CURRENTLY SALINE LOCKED. SECOND IV SEEN TO RIGHT HAND THAT IS CURRENTLY SALINE LOCKED. CALL LIGHT IS IN REACH. NO NEED AT CURRENT TIME. WILL CONTINUE TO MONITOR AND CONTINUE WITH PLAN OF CARE.
--- NOTE | 2017-06-06 10:40 | NUR ---
PT TO MRI VIA WHEELCHAIR.
--- NOTE | 2017-06-06 11:29 | NUR ---
PT BACK FROM MRI VIA WHEELCHAIR.
--- NOTE | 2017-06-06 11:34 | NUR ---
Patient Name: SAUL NAVA Admission Status: ER Accout number: [id number] Admission Date: 06-04-2017 : 1935 Admission Diagnosis: Attending: DNAII Current LOS: 2 Anticipated DC Date: Planned Disposition: Home Primary Insurance: MEDICARE A & B LATE ENTRY FROM 06-05-17: Discharge Planning Comments: * Is the patient Alert and Oriented? Yes 0 * How many steps to enter\exit or inside your home? NONE 0 * PCP DR. CHRISTIE 0 * Pharmacy [facility] 0 * Preadmission Environment Home with Family 0 * ADLs Independent 0 * Equipment Nebulizer Oxygen Rolling Walker Wheelchair 0 * Other Equipment HOME AND PORTABLE OXYGEN [facility] - MEDICAL EQUIPMENT PROVIDER PREFERENCE 0 * List name and contact numbers for known caregivers / representatives who currently or will assist patient after discharge: ARIANNA COSTA, DAUGHTER, [place] [phone] 0 * Community resources currently utilized None 0 * Please name any agencies selected above. NONE 0 * Additional services required to return to the preadmission environment? No 0 * Can the patient safely return to the preadmission environment? Yes 0 * Has this patient been hospitalized within the prior 30 days at any hospital? No 0 CM MET WITH PT AND DAUGHTER IN ROOM TO DISCUSS DISCHARGE PLANNING AND NEEDS. PT REPORTS LIVING AT HOME INDEPENDENTLY WITH HER ADULT DAUGHTER AND SON IN LAW. PT HAS ALL NEEDED MEDICAL EQUIPMENT FROM [facility] AND NO OUTSIDE SERVICES ASSISTING IN THE HOME. CM DISCUSSED AVAILABILITY OF HOME HEALTH, REHAB SERVICES AND MEDICAL EQUIPMENT. PT DENIES DISCHARGE NEEDS, REPORTS HER DAUGHTER WILL PICK HER UP FOR DISCHARGE HOME. PT AND DAUGHTER REPORTED SOME PROBLEMS WITH PT'S CARE SINCE ARRIVAL FROM EMERGENCY ROOM. CM PROVIDED INFORMATION TO BEDSIDE NURSE AND UNIT TUBULAR STOCK GLASS BULB MACHINE FORMER. PT PLANS TO DISCHARGE HOME WITH DAUGHTER, DENIES NEEDS AT THIS TIME. CM TO FOLLOW AND ASSIST NEEDED. [employer] Fire Support Planner: Jeremiah Lindsay
[2017-06-06 12:00] VITALS: BP 134/55
--- NOTE | 2017-06-06 14:36 | NUR ---
PT BACK FROM BARIUM SWALLOW VIA WHEELCHAIR. WILL HOOK PT UP TO IV FLUIDS. WILL CONTINUE TO MONITOR.
[2017-06-06 16:00] VITALS: BP 156/69
--- NOTE | 2017-06-06 18:16 | NUR ---
PT IS CURRENTLY SITTING UP IN BED WITH EYES OPEN WATCHING TV. PT DENIES ANY NEED AT CURRENT TIME. WILL CONTINUE TO MONITOR.
[2017-06-06 19:00] VITALS: BP 126/57
--- NOTE | 2017-06-06 20:52 | NUR ---
PT LYING IN BED, AWAKE, ALERT, ORIENTED, DENIES ANY NEEDS AT THIS TIME. BRIM PLATER OBTAINING V/S AT THIS TIME, WNL. CONTINUE TO MONITOR CLOSELY. BED LOW, CALL LIGHT IN REACH, SIDE RAILS X 2, HOB 30 DEGREES.
[2017-06-07 04:00] VITALS: BP 157/71
[2017-06-07 06:40] LABS: BASOPHILS 0.2 % (0-2); EOSINOPHILS 3.1 % (0-7); HEMATOCRIT 31.8 % (36.0-48.0); HEMOGLOBIN 10.4 g/dL (12-16); LYMPHOCYTES 24.8 % (15-50); MCH 31.3 pg (26.0-34.0); MCHC 32.7 g/dL (31.0-37.0); MCV 95.8 fL (80.0-100.0); MEAN PLATELET VOLUME 9.6 fL (7.4-10.4); MONOCYTES 8.3 % (2-11); NEUTROPHILS 63.6 % (40-80); PLATELET COUNT 128 10x3/uL (130-400); RBC 3.32 10x6/uL (4.00-5.40); RDW 12.4 % (11.5-14.5); WBC 6.4 10x3/uL (4.8-10.8)
--- NOTE | 2017-06-07 07:00 | NUR ---
REPORT RECEIVED FROM OFF GOING NURSE. PT IN BED. ALERT AND ORIENTED X4. DENIES PAIN AND SOB. BREATHING NORMAL AND UNLABORED. ON O2 AT 2L VIA NC. HAS AN IV IN LEFT AC. BLOOD NOTED IN LINE. IV DC WITH TIP INTACT AND PRESSURE DRESSING APPLIED. RIGHT HAND HAS AN IV WITH A C/D/I DRESSING. NS INFUSING AT 75ML/H. 0 NEEDS VOICED AT THIS TIME. 0 S/SX OF DISTRESS/DISCOMFORT NOTED. CALL LIGHT IN REACH. WILL CONT POC
[2017-06-07 07:05] LABS: ANION GAP 5.9 mmol/L (8-16); BILIRUBIN - TOTAL 0.42 mg/dL (0.2-1.3); CALCIUM 7.7 mg/dL (8.5-10.1); CARBON DIOXIDE 33.9 mmol/L (21.0-32.0); CREATININE - SERUM 0.8 mg/dL (0.6-1.3); POTASSIUM - SERUM 3.8 mmol/L (3.5-5.1)
[2017-06-07 08:00] VITALS: BP 159/59
--- NOTE | 2017-06-07 13:43 | NUR ---
Patient Name: SAUL Roque [place] Encounter No: [id number] : 1935 Primary Insurance: MEDICARE A & B Anticipated DC Date: 06-07-2017 Planned Disposition: Home DCP follow-up note: CM RECEIVED DISCHARGE ORDER, MET WITH PT IN ROOM, DISCUSSED AVAILABILITY OF HOME HEALTH, REHAB SERVICES AND MEDICAL EQUIPMENT. PT DENIES DISCHARGE NEEDS, IN AGREEMENT WITH DISCHARGE HOME TODAY, REPORTS HER DAUGHTER IS AWARE OF DISCHARGE TODAY AND WILL PICK HER UP FOR DISCHARGE HOME. IMPORTANT MESSAGE FROM MEDICARE PROVIDED AND EXPLAINED. Jeremiah Lindsay, CASE MANAGEMENT
--- NOTE | 2017-06-07 15:15 | NUR ---
IV DC WITH CATHETER TIP INTACT. DC PAPER WORK SIGNED. QUESTIONS ANSWERED AND DISCHARGE TEACHING AND MEDICATION TAUGHT. DAUGHTER HERE WITH PT TO DRIVE PT HOME. LEFT VIA W/C WITH VOULENTEER. IN A PLEASENT MOOD. BREATHING NORMAL AND UNLABORED. 0 S/SX OF DISTRESS/DISCOMFORT NOTED.
--- NOTE | 2017-06-08 17:14 | DS ---
PATIENT:SAUL NAVA :[birth year] MEDICAL RECORD: [id number] DISCHARGE SUMMARY ADMISSION DATE: 06/04/17 DISCHARGE DATE: 06/07/17 DATE OF ADMISSION: 06/04/2017 DATE OF DISCHARGE: 06/07/2017 ADMITTING DIAGNOSES: 1. Urinary tract infection. 2. Dizziness. 3. Weakness. 4. Hypoglycemia. 5. Anemia of unknown etiology. 6. History of seizure. 7. History of cerebrovascular accident. 8. History of coronary artery disease. 9. History of hypertension. 10. History of Parkinson disease. 11. History of diabetes. 12. History of chronic pain. HOSPITAL COURSE: This is a lady of Dr. Rondon admitted with diagnoses as outlined above. Details are well-outlined in the history of the present illness, H&P. All events, lab procedures and diagnostic testing are well documented in the records. The patient was admitted, started on IV antibiotics, diabetic meds held as she was having some nausea initially. She was placed on Accu-Chek blood sugars and low resistant sliding scale insulin. Appropriate other home medicines continued, placed on SCDs for DVT prophylaxis and PPI for GI prophylaxis. CONSULTANTS: Dr. Mathur, infectious disease. Her recommendations were followed. Dr. Valdez, neurology. His recommendations were followed. Her appetite improved. Home medicines were resumed. Lantus dose was cut down to prevent any further hyperglycemia. Labs and volume were closely followed. Chest x-ray showing mild chronic interstitial lung disease without any acute cardiopulmonary disease. CT of the head without contrast, no acute intracranial abnormality. There was some stable encephalomalacia in the left frontal lobe from old infarct and generalized cerebral atrophy. Please refer to report. MRI of the brain showing no acute abnormality, no hemorrhage, no recent infarct. Please refer to report. There was a 45-mm meningioma in the anterior cranial fossa without any significant associated mass effect or adjacent parenchymal edema. She had some chronic microvascular ischemic changes with diffuse cerebral volume loss and chronic left frontal lobe infarct and associated encephalomalacia. Again, please refer to report. Bedside swallow was done by our speech therapist. Barium swallow was recommended, it showed no stenosis or structural lesion seen. There were some mild tertiary contractions suggestive of some dysmotility, but there was otherwise normal passage of contrast to the esophagus. She has been up and ambulating. She has had no further spells. She is afebrile, vital signs stable. Dr. Mathur feels that she has asymptomatic bacteriuria and does not recommend antibiotic treatment at this time. She is stable for dismissal home today, afebrile, pulse 74, respirations 18, blood pressure 159/59 and O2 sat 100% on room air. She has ambulated in the [place] DISCHARGE SUMMARY REPORT [id number] [place],SAUL B[place]ON with physical therapy. She has ambulated to the bathroom and back independently with no problems. Glucose 145, 138, 155, 194 and 127. White count 6, hemoglobin 10.4 and platelets 128. Sodium 142, potassium 3.8, chloride 106, CO2 of 33.9, BUN 15 and serum creatinine 0.8. AST 14, ALT 8, alkaline phosphatase 66, bilirubin 0.42 and albumin 3. She is dismissed home. Please refer to med rec. Diagnoses are the same as above. They also include asymptomatic bacteriuria. Her symptoms are likely related to hypoglycemia, impossible uncontrolled hypertension at that time, she has coronary artery disease, Parkinson's, diabetes, history of cerebrovascular accident and transient ischemic attacks and per Dr. Valdez, stress associated with travels with multiple losses. Supportive care recommended from his standpoint. Please refer to both student union consultant's well documented notes. Greater than 30 minutes was spent on this discharge. We will have her follow up with house calls. TRANSINT:[id number] Voice Confirmation ID: [id number] DOCUMENT ID: [id number] Dictated By: CHRIS ESPITIA RN I have interviewed/examined the above patient and agree with these documented findings. NARCISA MACDONALD MD at 1714 CC: [id number] DICTATION DATE: 06/07/17 1243 HOISTING MACHINE OPERATOR: 06/08/17 0618 DIS IN 06/07/17 [facility] [address] [place] [address]
== END 2017-06-07 15:15 | disposition home or self-care (01) | DRG 639 ==
LOC: D.ER 15:50 → D.M2 19:51
PROVIDERS: Nurse Practitioner Acute Care; ADMIT Emergency Medicine
DX: E11.649 Type 2 diabetes mellitus with hypoglycemia without coma (principal); I10 Essential (primary) hypertension; R82.71 Bacteriuria; E86.0 Dehydration; R41.0 Disorientation, unspecified; I25.10 Atherosclerotic heart disease of native coronary artery without angina pectoris; G20 Parkinson's disease; K21.9 Gastro-esophageal reflux disease without esophagitis; D64.9 Anemia, unspecified; G93.89 Other specified disorders of brain; Z79.4 Long term (current) use of insulin; Z86.73 Personal history of transient ischemic attack (TIA), and cerebral infarction without residual deficits; Z95.5 Presence of coronary angioplasty implant and graft; Z95.1 Presence of aortocoronary bypass graft

== ENCOUNTER → 2017-06-19 12:20 | Outpatient (CLI) | payer MEDICARE ==
[2017-06-05 13:13] VITALS: BMI 28.1
--- NOTE | ~2017-06-19 | EEG ---
PATIENT:SAUL NAVA DATE OF SERVICE: 06/19/17 MEDICAL RECORD: [id number] DATE OF : [birth year] LOCATION: [facility] ADMISSION DATE: 06/19/17 REFERRING PHYSICIAN: INTERPRETING PHYSICIAN: AURA OLIVA MD DATE OF SERVICE: 06/19/2017 Referred by myself as an outpatient. ELECTROENCEPHALOGRAM NUMBER: [id number] DATE OF EXAMINATION: 06/19/2017 at 1:20 p.m. DATE OF : 1935 TECHNICAL DATA: This electroencephalographic recording consists of approximately 20 minutes of data collection utilizing the international 10/20 system of electrode placement and both referential and non-referential montages. Sixteen channels of electrocerebral recording are accompanied by a 17th channel dedicated to the electrocardiographic rhythm and 2 channels of electromyographic recording. Recording is performed in the awake and drowsy states utilizing activation by photic stimulation. ELECTROENCEPHALOGRAPHIC DATA: The awake state comprises approximately 30% of the recorded electrocerebral activity. Electromyographic artifact is prominent and rapid eye movements are seen. The posterior dominant background consists of a symmetric, rhythmic, waxing and waning, 8-9 Hz alpha activity which is suppressed by eye opening. The drowsy state comprises the remaining portion of the recorded electrocerebral activity. Electromyographic artifact is diminished and rapid eye movements are not seen. The posterior dominant background is at times relatively suppressed. Also seen is an intermittent irregular generalized and symmetric 2-3 Hz delta slowing which occurs for periods of 1-2 seconds approximately once every 1-2 pages. No abnormal or focal slowing is identified. No epileptiform discharges are seen. Photic stimulation induces no abnormal change in the recorded electrocerebral activity. INTERPRETATION: Normal (awake and drowsy). This is a normal electroencephalographic recording. TRANSINT:[id number] Voice Confirmation ID: [id number] DOCUMENT ID: [id number] ELECTROENCEPHALOGRAM REPORT [id number] SAUL NAVA AURA OLIVA MD CC: [id number] DICTATION DATE: 06/20/17 0640 NETWORK SECURITY ADMINISTRATOR: 06/20/17 2301 DEP CLI 06/19/17 [facility] [address] [place] [address]
[~2017-06-19 12:20] MED LIST changes: +KLOR-CON/EF 2525 MEQ PO; +LANTUS SOL100 UNIT/1 SC
== END | disposition home or self-care (01) ==
LOC: D.CN 12:20
DX: G60.9 Hereditary and idiopathic neuropathy, unspecified (principal); G20 Parkinson's disease; I10 Essential (primary) hypertension; E11.40 Type 2 diabetes mellitus with diabetic neuropathy, unspecified

== ENCOUNTER 2017-12-11 13:50 | Emergency (ER) | payer MEDICARE ==
[2017-06-05 13:13] VITALS: BMI 28.1
[2017-12-11 14:29] LABS: BASOPHILS 0.2 % (0-2); HEMATOCRIT 36.1 % (36.0-48.0); HEMOGLOBIN 11.9 g/dL (12-16); IMMATURE GRANULOCYTES 0.3 % (0-5); LYMPHOCYTES 13.8 % (15-50); MCH 31.2 pg (26.0-34.0); MCV 94.8 fL (80.0-100.0); MEAN PLATELET VOLUME 10.2 fL (7.4-10.4); MONOCYTES 5.5 % (2-11); NEUTROPHILS 78.2 % (40-80); RBC 3.81 10x6/uL (4.00-5.40); RDW 12.4 % (11.5-14.5); WBC 9.1 10x3/uL (4.8-10.8)
[2017-12-11 14:32] LABS: PLATELET COUNT 202 10x3/uL (130-400)
[2017-12-11 14:48] LABS: ALBUMIN 3.6 g/dL (3.4-5.0); ALKALINE PHOSPHATASE 89 U/L (46-116); BILIRUBIN - TOTAL 0.43 mg/dL (0.2-1.3); CALC OSMOLALITY 285 mosm/kg (275-300); CALCIUM 8.5 mg/dL (8.5-10.1); CARBON DIOXIDE 32.5 mmol/L (21.0-32.0); CHLORIDE - SERUM 102 mmol/L (98-107); CREATININE - SERUM 0.7 mg/dL (0.6-1.3); GLUCOSE 160 mg/dL (74-106); POTASSIUM - SERUM 4.2 mmol/L (3.5-5.1); PROTEIN - SERUM 7.3 g/dL (6.4-8.2); SODIUM 141 mmol/L (136-145); UREA NITROGEN 17 mg/dL (7-18); eGFR NON AFRICAN AMERICAN 84 mL/min (90-120)
[2017-12-11 14:50] LABS: ALT (SGPT) 6 U/L (10-68)
[2017-12-11 15:09] LABS: CHOL - HDL RATIO 3.3 ratio (2.3-4.1); CHOLESTEROL, TOTAL 174 mg/dL (0-200); CREATINE KINASE 47 UL (21-215); HDL CHOLESTEROL 53 mg/dL (32-96); LDL CHOLESTEROL 95 mg/dL (0-100); LDL-HDL RATIO 1.8 ratio (1.5-3.5); TRIGLYCERIDE 134 mg/dL (30-200)
[2017-12-11 15:12] LABS: TROPONIN-I < 0.017 ng/mL (0.000-0.060)
== END 2017-12-11 19:49 | disposition home or self-care (01) ==
LOC: D.ER 13:50
PROVIDERS: Emergency Medicine
DX: R07.89 Other chest pain (principal); J11.1 Influenza due to unidentified influenza virus with other respiratory manifestations; I50.9 Heart failure, unspecified; I10 Essential (primary) hypertension; G20 Parkinson's disease; E11.9 Type 2 diabetes mellitus without complications; I44.7 Left bundle-branch block, unspecified

== ENCOUNTER 2018-03-23 17:15 | Emergency (ER) | payer MEDICARE ==
[2017-06-05 13:13] VITALS: BMI 28.1
[2018-03-23 18:17] LABS: BASOPHILS 0.1 % (0-2); HEMATOCRIT 35.1 % (36.0-48.0); HEMOGLOBIN 11.6 g/dL (12-16); IMMATURE GRANULOCYTES 0.3 % (0-5); LYMPHOCYTES 21.3 % (15-50); MCH 31.6 pg (26.0-34.0); MCV 95.6 fL (80.0-100.0); MEAN PLATELET VOLUME 9.5 fL (7.4-10.4); MONOCYTES 7.5 % (2-11); NEUTROPHILS 67.8 % (40-80); PLATELET COUNT 170 10x3/uL (130-400); RBC 3.67 10x6/uL (4.00-5.40); RDW 12.2 % (11.5-14.5); WBC 7.6 10x3/uL (4.8-10.8)
[2018-03-23 18:27] LABS: CALC OSMOLALITY 287 mosm/kg (275-300); CALCIUM 8.4 mg/dL (8.5-10.1); CARBON DIOXIDE 32.8 mmol/L (21.0-32.0); CHLORIDE - SERUM 105 mmol/L (98-107); CREATININE - SERUM 0.7 mg/dL (0.6-1.3); POTASSIUM - SERUM 4.2 mmol/L (3.5-5.1); SODIUM 144 mmol/L (136-145); UREA NITROGEN 19 mg/dL (7-18); eGFR NON AFRICAN AMERICAN 84 mL/min (90-120)
[2018-03-23 18:29] LABS: GLUCOSE 85 mg/dL (74-106)
== END 2018-03-23 19:14 | disposition home or self-care (01) ==
LOC: D.ER 17:15
PROVIDERS: Emergency Medicine
DX: G43.B0 Ophthalmoplegic migraine, not intractable (principal); I50.9 Heart failure, unspecified; I10 Essential (primary) hypertension; G20 Parkinson's disease; E11.9 Type 2 diabetes mellitus without complications

== ENCOUNTER 2018-08-27 12:30 | Inpatient (IN) | payer MEDICARE ==
[~2018-08-27] VITALS: Ht 157.5 cm; Wt 71.2 kg
--- NOTE | ~2018-08-27 | MORECARE ---
CASE MANAGEMENT DISCHARGE SUMMARY PATIENT: SAUL NAVA UNIT: [id number] ADM DATE: 08/28/18 AGE: 83 : [birth year] SEX: F ROOM/BED: D.2225 AUTHOR: BARRY,DOC PHYSICIAN: REFERRING PHYSICIAN: ANITA ROMERO MD DATE OF SERVICE: 08/31/18 Discharge Plan Patient Name: SAUL NAVA Facility: [facility]:[place] : 1935 Planned Disposition: Outpatient PT\OT Anticipated Discharge Date: 08/31/18 Discharge Date: Expected LOS: 3 Initial Reviewer: [email or web address] Initial Review Date: 08/31/2018 Generated: 08/31/18 7:55 pm Comments DCP- Discharge Planning Updated by [email or web address]: La Avery on 08/31/18 5:[address] Patient Name: SAUL NAVA Admission Status: ER Accout number: [id number] Admission Date: 08-28-2018 : 1935 Admission Diagnosis: Attending: ANITA ROMERO Current LOS: 3 Anticipated DC Date: 08-31-2018 Planned Disposition: Outpatient PT\OT Primary Insurance: MEDICARE A & B Discharge Planning Comments: CM MET WITH PATIENT AND HER DAUGHTER ARIANNA ABOUT DC PLANNING/NEEDS. PLANS TO DC TO HOME TODAY AND START OUTPATIENT REHAB/PT THIS WEEK. DOCUMENT WITH A LIST OF OUTPATIENT REHAB FACILITIES IN [place] PRINTED OUT AND WILL BE GIVEN TO FAMILY AT TIME OF DC. THE DAUGHTER STATES THEY WILL CHOSE ONE TOMORROW AND CALL SINCE THEY ARE ALL CLOSED TODAY. COPY OF THE DC ORDER ALSO SENT WITH PATIENT TO TAKE TO REHAB. MO SIGNED IN CASE SOMETHING CHANGES AND SHE NEEDS HH INSTEAD. MO PLACED ON CHART. IMM SERVED. FAMILY AND PATIENT IN AGREEMENT WITH PLAN. CM WILL FOLLOW AND ASSIST NEEDED WITH DC PLANNING\NEEDS. Checker Loader: La Avery DCPIA - Discharge Planning Initial Assessment Updated by [email or web address]: La Avery on 08/31/18 6:42 pm * Is the patient Alert and Oriented? Yes * How many steps to enter\exit or inside your home? * PCP CHRISTIE * Pharmacy [facility] * Preadmission Environment Home with Family * ADLs Partial Dependent * Partial ADLs (Assistance needed) Ambulation * Equipment Grab Bars Nebulizer Oxygen Rolling Walker Walker Wheelchair * List name and contact numbers for known caregivers / representatives who currently or will assist patient after discharge: ARIANNA , DAUGHTER, * Community resources currently utilized None * Additional services required to return to the preadmission environment? Yes * Can the patient safely return to the preadmission environment? Yes * Has this patient been hospitalized within the prior 30 days at any hospital? No Coverage Notice Reviewer: [email or web address] Avery Notice Issued Date-Time: 08/31/2018 17:20 Notice Type: IM Discharge Notice Notice Delivered To: Patient Relationship to Patient: Self Walking Dragline Operator Name: Delivery Method: HAND - Hand Delivered Nydia Days: Prior Verbal Notification: Recipient Understood Notice: Yes Recipient Signature: Yes Med Rec Note Co-signed by Attending: Coverage Notice Comment: Reviewer: [email or web address] Avery Notice Issued Date-Time: 08/31/2018 18:42 Notice Type: Patient Choice Letter Notice Delivered To: Patient Relationship to Patient: Self Walking Dragline Operator Name: Delivery Method: HAND - Hand Delivered Nydia Days: Prior Verbal Notification: Recipient Understood Notice: Yes Recipient Signature: Yes Med Rec Note Co-signed by Attending: Coverage Notice Comment: IF NEEDS HH INSTEAD OF OUTPATIENT REHAB. [facility]. Last DP export: 08/31/18 5:43 Patient Name: SAUL NAVA Page [phone] at 1856 All edits/amendments must be made on the electronic document DICTATION DATE: 08/31/181854 CENTRAL MELT SPECIALIST: HUNTER 08/31/181854 RPT#: [id number] DC DATE: STATUS: ADM IN [facility] [address] [place] [address] END OF REPORT
--- NOTE | ~2018-08-27 | MORECARE ---
CASE MANAGEMENT DISCHARGE SUMMARY PATIENT: SAUL NAVA UNIT: [id number] ADM DATE: 08/28/18 AGE: 83 : [birth year] SEX: F ROOM/BED: D.2225 AUTHOR: SUSI REDDY PHYSICIAN: REFERRING PHYSICIAN: ANITA ROMERO MD DATE OF SERVICE: 08/31/18 Discharge Plan Patient Name: SAUL NAVA Facility: [facility]:[place] : 1935 Planned Disposition: Outpatient PT\OT Anticipated Discharge Date: 08/31/18 Discharge Date: Expected LOS: 3 Initial Reviewer: [email or web address] Initial Review Date: 08/31/2018 Generated: 08/31/18 7:43 pm DCPIA - Discharge Planning Initial Assessment Updated by [email or web address]: La Avery on 08/31/18 6:42 pm * Is the patient Alert and Oriented? Yes * How many steps to enter\exit or inside your home? * PCP PRATIK * Pharmacy [facility] * Preadmission Environment Home with Family * ADLs Partial Dependent * Partial ADLs (Assistance needed) Ambulation * Equipment Grab Bars Nebulizer Oxygen Rolling Walker Walker Wheelchair * List name and contact numbers for known caregivers / representatives who currently or will assist patient after discharge: ARIANNA , DAUGHTER, * Community resources currently utilized None * Additional services required to return to the preadmission environment? Yes * Can the patient safely return to the preadmission environment? Yes * Has this patient been hospitalized within the prior 30 days at any hospital? No Coverage Notice Reviewer: [email or web address] - La Avery Notice Issued Date-Time: 08/31/2018 17:20 Notice Type: IM Discharge Notice Notice Delivered To: Patient Relationship to Patient: Self Business Process Expert Name: Delivery Method: HAND - Hand Delivered Nydia Days: Prior Verbal Notification: Recipient Understood Notice: Yes Recipient Signature: Yes Med Rec Note Co-signed by Attending: Coverage Notice Comment: Patient Name: SAUL NAVA Page [phone] at 1843 All edits/amendments must be made on the electronic document DICTATION DATE: 08/31/181841 E COMMERCE RETAILER: HUNTER 08/31/181841 RPT#: [id number] DC DATE: STATUS: ADM IN [facility] [address] [place] [address] END OF REPORT
--- NOTE | ~2018-08-27 | MORECARE ---
CASE MANAGEMENT DISCHARGE SUMMARY PATIENT: SAUL NAVA UNIT: [id number] ADM DATE: 08/28/18 AGE: 83 : [birth year] SEX: F ROOM/BED: D.2225 AUTHOR: BARRY,DOC PHYSICIAN: REFERRING PHYSICIAN: ANITA ROMERO MD DATE OF SERVICE: 09/01/18 Discharge Plan Patient Name: SAUL NAVA Facility: [facility]:[place] : 1935 Planned Disposition: Outpatient PT\OT Anticipated Discharge Date: 08/31/18 Discharge Date: 08/31/2018 Expected LOS: 3 Initial Reviewer: [email or web address] Initial Review Date: 08/31/2018 Generated: 09/01/18 3:35 pm Comments DCP- Discharge Planning Updated by [email or web address]: La Avery on 08/31/18 5:[address] Patient Name: SAUL NAVA Admission Status: ER Accout number: [id number] Admission Date: 08-28-2018 : 1935 Admission Diagnosis: Attending: ANITA ROMERO Current LOS: 3 Anticipated DC Date: 08-31-2018 Planned Disposition: Outpatient PT\OT Primary Insurance: MEDICARE A & B Discharge Planning Comments: CM MET WITH PATIENT AND HER DAUGHTER ARIANNA ABOUT DC PLANNING/NEEDS. PLANS TO DC TO HOME TODAY AND START OUTPATIENT REHAB/PT THIS WEEK. DOCUMENT WITH A LIST OF OUTPATIENT REHAB FACILITIES IN [place] PRINTED OUT AND WILL BE GIVEN TO FAMILY AT TIME OF DC. THE DAUGHTER STATES THEY WILL CHOSE ONE TOMORROW AND CALL SINCE THEY ARE ALL CLOSED TODAY. COPY OF THE DC ORDER ALSO SENT WITH PATIENT TO TAKE TO REHAB. MO SIGNED IN CASE SOMETHING CHANGES AND SHE NEEDS HH INSTEAD. MO PLACED ON CHART. IMM SERVED. FAMILY AND PATIENT IN AGREEMENT WITH PLAN. CM WILL FOLLOW AND ASSIST NEEDED WITH DC PLANNING\NEEDS. Manager Photography: La Avery DCPIA - Discharge Planning Initial Assessment Updated by [id number]: La Avery on 08/31/18 6:42 pm * Is the patient Alert and Oriented? Yes * How many steps to enter\exit or inside your home? * PCP CHRISTIE * Pharmacy [facility] * Preadmission Environment Home with Family * ADLs Partial Dependent * Partial ADLs (Assistance needed) Ambulation * Equipment Grab Bars Nebulizer Oxygen Rolling Walker Walker Wheelchair * List name and contact numbers for known caregivers / representatives who currently or will assist patient after discharge: ARIANNA , INGR[place], * Community resources currently utilized None * Additional services required to return to the preadmission environment? Yes * Can the patient safely return to the preadmission environment? Yes * Has this patient been hospitalized within the prior 30 days at any hospital? No Coverage Notice Reviewer: [email or web address] Avery Notice Issued Date-Time: 08/31/2018 17:20 Notice Type: IM Discharge Notice Notice Delivered To: Patient Relationship to Patient: Self Building Carpenter Name: Delivery Method: HAND - Hand Delivered Nydia Days: Prior Verbal Notification: Recipient Understood Notice: Yes Recipient Signature: Yes Med Rec Note Co-signed by Attending: Coverage Notice Comment: Reviewer: [email or web address] Avery Notice Issued Date-Time: 08/31/2018 18:42 Notice Type: Patient Choice Letter Notice Delivered To: Patient Relationship to Patient: Self Building Carpenter Name: Delivery Method: HAND - Hand Delivered Nydia Days: Prior Verbal Notification: Recipient Understood Notice: Yes Recipient Signature: Yes Med Rec Note Co-signed by Attending: Coverage Notice Comment: IF NEEDS HH INSTEAD OF OUTPATIENT REHAB. [facility]. Last DP export: 08/31/18 5:56 Patient Name: SAUL NAVA Page [phone] at 1435 All edits/amendments must be made on the electronic document DICTATION DATE: 09/01/18 1435 ROOFING MACHINE TENDER: HUNTER 09/01/18 1435 RPT#: [id number] DC DATE:08/31/18 STATUS: DIS IN [facility] [address] [place] [address] END OF REPORT
[2018-08-27 13:56] LABS: BASOPHILS 0.1 % (0-2); EOSINOPHILS 1.7 % (0-7); HEMATOCRIT 37.5 % (36.0-48.0); HEMOGLOBIN 12.3 g/dL (12-16); IMMATURE GRANULOCYTES 0.1 % (0-5); LYMPHOCYTES 9.3 % (15-50); MCH 31.5 pg (26.0-34.0); MCHC 32.8 g/dL (31.0-37.0); MCV 96.2 fL (80.0-100.0); MEAN PLATELET VOLUME 10.1 fL (7.4-10.4); MONOCYTES 8.9 % (2-11); NEUTROPHILS 79.9 % (40-80); PLATELET COUNT 168 10x3/uL (130-400); RDW 12.3 % (11.5-14.5); WBC 14.5 10x3/uL (4.8-10.8)
[2018-08-27 14:15] LABS: ALBUMIN 3.7 g/dL (3.4-5.0); ALKALINE PHOSPHATASE 65 U/L (46-116); ALT (SGPT) 5 U/L (10-68); CALC OSMOLALITY 281 mosm/kg (275-300); CALCIUM 8.4 mg/dL (8.5-10.1); CHLORIDE - SERUM 101 mmol/L (98-107); CREATININE - SERUM 0.7 mg/dL (0.6-1.3); GLUCOSE 191 mg/dL (74-106); POTASSIUM - SERUM 4.3 mmol/L (3.5-5.1); PROTEIN - SERUM 7.4 g/dL (6.4-8.2); SODIUM 138 mmol/L (136-145); UREA NITROGEN 16 mg/dL (7-18); eGFR NON AFRICAN AMERICAN 84 mL/min (90-120)
[2018-08-27 14:22] LABS: APTT 26.5 SECONDS (22.8-39.4)
[2018-08-27 14:23] LABS: INR 1.02 (0.85-1.17)
[2018-08-27 14:31] LABS: CREATINE KINASE 42 UL (21-215); PRO BNP 347 pg/mL (0-450); TROPONIN-I < 0.017 ng/mL (0.000-0.060)
[2018-08-27 15:04] VITALS: BP 168/74
[2018-08-27 16:15] VITALS: BP 154/89
[2018-08-27 17:15] VITALS: BP 164/90
[2018-08-27 18:16] VITALS: BP 160/95
[2018-08-27 18:32] LABS: APPEARANCE CLEAR (CLEAR); COLOR YELLOW (YELLOW); GLUCOSE 50 mg/dL (NEGATIVE); NITRITE POSITIVE (NEGATIVE); PROTEIN NEGATIVE (NEGATIVE)
[2018-08-27 18:35] LABS: BILIRUBIN NEGATIVE (NEGATIVE); KETONE NEGATIVE (NEGATIVE); UROBILINOGEN NORMAL (NORMAL)
[2018-08-27 18:36] LABS: BACTERIA MANY /hpf (NONE SEEN); WHITE CELLS - URINE 0-5 /hpf (0-5)
[2018-08-27 19:15] VITALS: BP 175/80
[2018-08-27] MEDS ORDERED: VITAMIN D31000 UNI2 PO (21:14)
[2018-08-27 22:52] VITALS: BP 175/80; BMI 28.8
[2018-08-28 04:58] LABS: BASOPHILS 0.1 % (0-2); EOSINOPHILS 1.2 % (0-7); HEMOGLOBIN 11.6 g/dL (12-16); IMMATURE GRANULOCYTES 0.2 % (0-5); LYMPHOCYTES 11.1 % (15-50); MCH 31.5 pg (26.0-34.0); MCHC 33.1 g/dL (31.0-37.0); MCV 95.1 fL (80.0-100.0); MEAN PLATELET VOLUME 9.9 fL (7.4-10.4); MONOCYTES 8.7 % (2-11); NEUTROPHILS 78.7 % (40-80); PLATELET COUNT 153 10x3/uL (130-400); RBC 3.68 10x6/uL (4.00-5.40); RDW 12.2 % (11.5-14.5); WBC 12.4 10x3/uL (4.8-10.8)
[2018-08-28 05:00] VITALS: BP 149/98
[2018-08-28 05:52] LABS: CALCIUM 7.7 mg/dL (8.5-10.1); CHLORIDE - SERUM 104 mmol/L (98-107); CREATININE - SERUM 0.7 mg/dL (0.6-1.3); POTASSIUM - SERUM 4.1 mmol/L (3.5-5.1); SODIUM 140 mmol/L (136-145); eGFR NON AFRICAN AMERICAN 84 mL/min (90-120)
[2018-08-28 05:56] LABS: CALC OSMOLALITY 279 mosm/kg (275-300); GLUCOSE 135 mg/dL (74-106); UREA NITROGEN 11 mg/dL (7-18)
[2018-08-28 09:05] VITALS: BP 175/71
[2018-08-28 11:13] VITALS: Ht 157.5 cm; Wt 71.2 kg
[2018-08-28 16:19] VITALS: BP 158/63
[2018-08-28 20:00] VITALS: BP 159/64
[2018-08-29 04:00] VITALS: BP 141/46
[2018-08-29 06:47] LABS: BASOPHILS 0.1 % (0-2); EOSINOPHILS 2.3 % (0-7); HEMATOCRIT 33.9 % (36.0-48.0); HEMOGLOBIN 11.1 g/dL (12-16); IMMATURE GRANULOCYTES 0.3 % (0-5); LYMPHOCYTES 15.7 % (15-50); MCH 31.4 pg (26.0-34.0); MCHC 32.7 g/dL (31.0-37.0); MCV 95.8 fL (80.0-100.0); MEAN PLATELET VOLUME 10.1 fL (7.4-10.4); MONOCYTES 6.9 % (2-11); NEUTROPHILS 74.7 % (40-80); PLATELET COUNT 147 10x3/uL (130-400); RBC 3.54 10x6/uL (4.00-5.40); RDW 12.3 % (11.5-14.5)
[2018-08-29 07:14] LABS: CALC OSMOLALITY 280 mosm/kg (275-300); CALCIUM 7.5 mg/dL (8.5-10.1); CARBON DIOXIDE 27.3 mmol/L (21.0-32.0); CHLORIDE - SERUM 105 mmol/L (98-107); CREATININE - SERUM 0.6 mg/dL (0.6-1.3); GLUCOSE 161 mg/dL (74-106); POTASSIUM - SERUM 4.5 mmol/L (3.5-5.1); SODIUM 140 mmol/L (136-145); UREA NITROGEN 10 mg/dL (7-18); eGFR NON AFRICAN AMERICAN > 90 mL/min (90-120)
[2018-08-29 08:18] VITALS: BP 144/76
[2018-08-29 12:47] VITALS: BP 117/53
[2018-08-29 16:57] VITALS: BP 129/49
[2018-08-29 21:16] VITALS: BP 136/64
[2018-08-30 04:17] VITALS: BP 150/72
[2018-08-30 06:41] LABS: BASOPHILS 0.1 % (0-2); EOSINOPHILS 3.4 % (0-7); HEMATOCRIT 31.1 % (36.0-48.0); IMMATURE GRANULOCYTES 0.1 % (0-5); LYMPHOCYTES 16.6 % (15-50); MCH 30.9 pg (26.0-34.0); MCHC 32.2 g/dL (31.0-37.0); MEAN PLATELET VOLUME 10.3 fL (7.4-10.4); MONOCYTES 9.8 % (2-11); PLATELET COUNT 160 10x3/uL (130-400); RBC 3.24 10x6/uL (4.00-5.40); RDW 12.2 % (11.5-14.5); WBC 7.9 10x3/uL (4.8-10.8)
[2018-08-30 06:57] LABS: CALC OSMOLALITY 279 mosm/kg (275-300); CALCIUM 7.4 mg/dL (8.5-10.1); CARBON DIOXIDE 28.3 mmol/L (21.0-32.0); CHLORIDE - SERUM 107 mmol/L (98-107); CREATININE - SERUM 0.5 mg/dL (0.6-1.3); GLUCOSE 132 mg/dL (74-106); SODIUM 140 mmol/L (136-145); UREA NITROGEN 9 mg/dL (7-18); eGFR NON AFRICAN AMERICAN > 90 mL/min (90-120)
[2018-08-30 08:43] VITALS: BP 151/72
[2018-08-30 12:00] VITALS: BP 164/70
[2018-08-30 15:00] VITALS: BP 132/66
[2018-08-30 21:31] VITALS: BP 147/72
[2018-08-31 06:03] VITALS: BP 104/68
[2018-08-31 06:48] LABS: BASOPHILS 0.2 % (0-2); EOSINOPHILS 4.3 % (0-7); HEMATOCRIT 30.9 % (36.0-48.0); IMMATURE GRANULOCYTES 0.4 % (0-5); LYMPHOCYTES 22.8 % (15-50); MCH 31.1 pg (26.0-34.0); MCHC 32.4 g/dL (31.0-37.0); MONOCYTES 10.9 % (2-11); NEUTROPHILS 61.4 % (40-80); PLATELET COUNT 163 10x3/uL (130-400); RBC 3.22 10x6/uL (4.00-5.40); RDW 12.2 % (11.5-14.5)
[2018-08-31 06:49] LABS: WBC 5.5 10x3/uL (4.8-10.8)
[2018-08-31 06:53] LABS: CALC OSMOLALITY 279 mosm/kg (275-300); CALCIUM 7.5 mg/dL (8.5-10.1); CARBON DIOXIDE 30.4 mmol/L (21.0-32.0); CHLORIDE - SERUM 107 mmol/L (98-107); CREATININE - SERUM 0.6 mg/dL (0.6-1.3); GLUCOSE 119 mg/dL (74-106); POTASSIUM - SERUM 3.9 mmol/L (3.5-5.1); SODIUM 141 mmol/L (136-145); eGFR NON AFRICAN AMERICAN > 90 mL/min (90-120)
[2018-08-31 07:01] LABS: UREA NITROGEN 6 mg/dL (7-18)
[2018-08-31 14:11] VITALS: BP 169/66
[2018-08-31] MEDS ORDERED: BACTRIM 400/80 MG TA PO ×2 (14:53→14:55)
== END 2018-08-31 19:20 | disposition home or self-care (01) | DRG 872 ==
LOC: D.ER 12:30 → OBSVTIME 19:05 → D.EDHOLD 19:05 → D.MS 19:27
PROVIDERS: Family Medicine; Internal Medicine Nephrology
DX: A41.9 Sepsis, unspecified organism (principal); N39.0 Urinary tract infection, site not specified; E11.9 Type 2 diabetes mellitus without complications; I10 Essential (primary) hypertension; I25.10 Atherosclerotic heart disease of native coronary artery without angina pectoris

== ENCOUNTER 2018-10-16 12:26 | Inpatient (IN) | payer MEDICARE ==
[~2018-10-16] VITALS: Ht 157.5 cm; Wt 68.0 kg
[~2018-10-16 12:26] MED LIST changes: +BACTRIM 400/80 MG TA PO; +VITAMIN D31000 UNI2 PO
[2018-10-16 13:17] LABS: BASOPHILS 0.1 % (0-2); EOSINOPHILS 0.5 % (0-7); HEMATOCRIT 41.4 % (36.0-48.0); HEMOGLOBIN 13.9 g/dL (12-16); IMMATURE GRANULOCYTES 0.2 % (0-5); LYMPHOCYTES 7.1 % (15-50); MCH 31.5 pg (26.0-34.0); MCHC 33.6 g/dL (31.0-37.0); MCV 93.9 fL (80.0-100.0); MEAN PLATELET VOLUME 9.7 fL (7.4-10.4); MONOCYTES 3.8 % (2-11); NEUTROPHILS 88.3 % (40-80); PLATELET COUNT 185 10x3/uL (130-400); RBC 4.41 10x6/uL (4.00-5.40); RDW 12.2 % (11.5-14.5); WBC 16.8 10x3/uL (4.8-10.8)
[2018-10-16 13:19] LABS: KETONE - SERUM NEGATIVE (NEGATIVE)
[2018-10-16 13:39] LABS: ALBUMIN 3.9 g/dL (3.4-5.0); ALKALINE PHOSPHATASE 73 U/L (46-116); ALT (SGPT) 22 U/L (10-68); BILIRUBIN - TOTAL 0.66 mg/dL (0.2-1.3); CALC OSMOLALITY 289 mosm/kg (275-300); CALCIUM 8.4 mg/dL (8.5-10.1); CARBON DIOXIDE 28.5 mmol/L (21.0-32.0); CHLORIDE - SERUM 103 mmol/L (98-107); CREATININE - SERUM 0.9 mg/dL (0.6-1.3); LIPASE 118 U/L (73-393); MAGNESIUM - SERUM 1.9 mg/dL (1.8-2.4); POTASSIUM - SERUM 4.7 mmol/L (3.5-5.1); SODIUM 140 mmol/L (136-145); UREA NITROGEN 19 mg/dL (7-18); eGFR NON AFRICAN AMERICAN 63 mL/min (90-120)
[2018-10-16 13:40] LABS: GLUCOSE 261 mg/dL (74-106)
[2018-10-16 15:22] LABS: APPEARANCE CLEAR (CLEAR); BILIRUBIN NEGATIVE (NEGATIVE); COLOR YELLOW (YELLOW); GLUCOSE 1000 mg/dL (NEGATIVE); KETONE SMALL mg/dL (NEGATIVE); NITRITE POSITIVE (NEGATIVE); PROTEIN NEGATIVE (NEGATIVE); UROBILINOGEN NORMAL (NORMAL)
[2018-10-16 15:23] LABS: EPITHELIAL CELLS 0-5 /hpf (0-5); RED CELLS - URINE NONE SEEN /hpf (0-5); WHITE CELLS - URINE NSEEN /hpf (0-5)
--- NOTE | 2018-10-16 19:08 | MORECARE ---
CASE MANAGEMENT DISCHARGE SUMMARY PATIENT: SAUL NAVA UNIT: [id number] ADM DATE: 10/16/18 AGE: 83 : 33 SEX: F ROOM/BED: D.2205 AUTHOR: SUSI REDDY PHYSICIAN: REFERRING PHYSICIAN: KASEY PAULA MD DATE OF SERVICE: 10/16/18 Discharge Plan Patient Name: SAUL NAVA [facility] [facility] 1935 Planned Disposition: Home Anticipated Discharge Date: 10/18/18 Discharge Date: Expected LOS: 2 Initial Reviewer: [email or web address] Initial Review Date: 10/16/2018 Generated: 10/16/18 8:07 pm Patient Name: SAUL NAVA Page [id number] at 1908 All edits/amendments must be made on the electronic document DICTATION DATE: 10/16/181906 STEAM SERVICE INSPECTOR: HUNTER 10/16/181906 RPT#: [id number] DC DATE: STATUS: ADM IN [facility] [address] [place] [address] END OF REPORT
--- NOTE | 2018-10-16 19:15 | MORECARE ---
CASE MANAGEMENT DISCHARGE SUMMARY PATIENT: SAUL NAVA UNIT: [id number] ADM DATE: 10/16/18 AGE: 83 : 33 SEX: F ROOM/BED: D.2205 AUTHOR: SUSI REDDY PHYSICIAN: REFERRING PHYSICIAN: KASEY PAULA MD DATE OF SERVICE: 10/16/18 Discharge Plan Patient Name: SAUL NAVA [facility] [facility] 1935 Planned Disposition: Home Anticipated Discharge Date: 10/18/18 Discharge Date: Expected LOS: 2 Initial Reviewer: [email or web address] Initial Review Date: 10/16/2018 Generated: 10/16/18 8:15 pm Last DP export: 10/16/18 6:08 Patient Name: SAUL NAVA Page 16046 at 1915 All edits/amendments must be made on the electronic document DICTATION DATE: 10/16/181914 DENTAL RECEPTIONIST: HUNTER 10/16/181914 RPT#: [id number] DC DATE: STATUS: ADM IN [facility] [address] [place] [address] END OF REPORT
--- NOTE | 2018-10-16 19:28 | MORECARE ---
CASE MANAGEMENT DISCHARGE SUMMARY PATIENT: SAUL NAVA UNIT: [id number] ADM DATE: 10/16/18 AGE: 83 : 33 SEX: F ROOM/BED: D.220 AUTHOR: SUSI REDDY PHYSICIAN: REFERRING PHYSICIAN: KASEY PAULA MD DATE OF SERVICE: 10/16/18 Discharge Plan Patient Name: SAUL NAVA Facility: [facility]:[place] : 1935 Planned Disposition: Home Anticipated Discharge Date: 10/18/18 Discharge Date: Expected LOS: 2 Initial Reviewer: [email or web address] Initial Review Date: 10/16/2018 Generated: 10/16/18 8:28 pm DCP- Discharge Planning Updated by [email or web address]: Nickie Ward on 10/16/18 6:[address] Patient Name: SAUL NAVA Admission Status: ER Accout number: [id number] Admission Date: 10-16-2018 : 1935 Admission Diagnosis: Attending: KASEY PAULA Current LOS: 1 Anticipated DC Date: 10-18-2018 Planned Disposition: Home Primary Insurance: MEDICARE A & B Discharge Planning Comments: CM met with patient to complete initial dc planning assessment. CM educated patient on the CM role and verbal consent given by patient to complete assessment. Patient lives at home with her daughter and son in law. They assist her in her care. She requires assistance getting in and out of the tub and all transportation. Her daughter or son in law transport her to and from physical therapy 3 x week. At discharge patient plans to return home with her family and feels this is a safe discharge. Patient denied known discharge needs at this time. CM will continue to follow and will assist as needed with dc plans/needs. Hand Box Coverer: Nickie Ward RN, [facility] DCPIA - Discharge Planning Initial Assessment Updated by [email or web address]: Nickie Ward on 10/16/18 7:23 pm * Is the patient Alert and Oriented? Yes * How many steps to enter\exit or inside your home? one * PCP Dr. Rondon * Pharmacy [facility] the [facility] * Preadmission Environment Home with Family * ADLs Partial Dependent * Partial ADLs (Assistance needed) Bathing * Equipment Cane Oxygen Rolling Walker Wheelchair * List name and contact numbers for known caregivers / representatives who currently or will assist patient after discharge: Madelyn Levy - daughter - [phone] * Verbal permission to speak to the caregivers and representatives has been obtained from the patient. Yes * Community resources currently utilized Other * Please name any agencies selected above. OP therapy 3 x week. Daughter or her son in law drives her to therapy. * Additional services required to return to the preadmission environment? No * Can the patient safely return to the preadmission environment? Yes * Has this patient been hospitalized within the prior 30 days at any hospital? No Last DP export: 10/16/18 6:15 Patient Name: SAUL NAVA Page 62407 at 1928 All edits/amendments must be made on the electronic document DICTATION DATE: 10/16/181926 ADVANCE SCOUT: HUNTER 10/16/181926 RPT#: [id number] DC DATE: STATUS: ADM IN [facility] [address] [place] [address] END OF REPORT
--- NOTE | 2018-10-16 19:30 | NUR ---
ADMITTED TO ROOM ALERT AND ORIENTIATED C/O NAUSEA AND VOVITING SINCE THIS MORNING, IV INTACT TO LEFT AC WITH LEVAQUIN INFUSING. ORIENITATED TO ROOM CALL LIGHT IN REACH
[2018-10-17 01:40] VITALS: BP 155/86; BMI 27.5
[2018-10-17 04:34] VITALS: BP 157/63
--- NOTE | 2018-10-17 07:30 | NUR ---
REC'D IN BED AWAKE AND ALERT. RESP EVEN AND UNLABORED WITH NO DISTRESS NOTED. CAN EXPRESS NEEDS AND WANTS. NONE NOTED OR VOICED. ASSESSMENT COMPLETED. C/L IN REACH AT BEDSIDE.
[2018-10-17 08:51] VITALS: BP 180/82
--- NOTE | 2018-10-17 10:48 | NUR ---
RESTING QUIETLY IN BED. DENIES NEEDS.
[2018-10-17 11:48] LABS: BASOPHILS 0.1 % (0-2); EOSINOPHILS 0.3 % (0-7); HEMATOCRIT 35.8 % (36.0-48.0); IMMATURE GRANULOCYTES 0.2 % (0-5); LYMPHOCYTES 7.4 % (15-50); MCH 31.1 pg (26.0-34.0); MCHC 33.5 g/dL (31.0-37.0); MCV 92.7 fL (80.0-100.0); MEAN PLATELET VOLUME 9.9 fL (7.4-10.4); MONOCYTES 9.7 % (2-11); NEUTROPHILS 82.3 % (40-80); PLATELET COUNT 148 10x3/uL (130-400); RBC 3.86 10x6/uL (4.00-5.40); RDW 12.4 % (11.5-14.5)
[2018-10-17 11:49] LABS: WBC 9.2 10x3/uL (4.8-10.8)
[2018-10-17 12:08] LABS: ALBUMIN 3.1 g/dL (3.4-5.0); ALKALINE PHOSPHATASE 47 U/L (46-116); ALT (SGPT) 25 U/L (10-68); BILIRUBIN - TOTAL 0.56 mg/dL (0.2-1.3); CARBON DIOXIDE 25.5 mmol/L (21.0-32.0); CHLORIDE - SERUM 105 mmol/L (98-107); PROTEIN - SERUM 6.6 g/dL (6.4-8.2); SODIUM 140 mmol/L (136-145); UREA NITROGEN 15 mg/dL (7-18)
[2018-10-17 12:18] LABS: CALC OSMOLALITY 283 mosm/kg (275-300); CREATININE - SERUM 0.5 mg/dL (0.6-1.3); GLUCOSE 164 mg/dL (74-106); POTASSIUM - SERUM 3.8 mmol/L (3.5-5.1); eGFR NON AFRICAN AMERICAN > 90 mL/min (90-120)
[2018-10-17 12:19] LABS: CALCIUM 6.9 mg/dL (8.5-10.1)
[2018-10-17 12:37] VITALS: Ht 157.5 cm; Wt 68.0 kg
[2018-10-17 15:59] VITALS: BP 124/55
--- NOTE | 2018-10-17 19:15 | NUR ---
RECEIVED CARE FROM DAY NURSE. LYING IN BED LOOKING AT HER TABLET. REPORTS NO NEEDS AT THIS TIME. CALL LIGHT AT SIDE. IV INFUSING PER ORDER TO LEFT AC.
[2018-10-17 20:00] VITALS: BP 133/70
[2018-10-18] VITALS (7 sets, daily range): BP systolic 90–150; BP diastolic 54–88
--- NOTE | 2018-10-18 04:00 | NUR ---
PT RESTING QUIETLY, EYES CLOSED. RESP EVEN, UNLABORED. NO DISTRESS NOTED. CONTINUE TRAVEL DIRECTOR'S PLAN OF CARE.
[2018-10-18 07:10] LABS: BASOPHILS 0.2 % (0-2); EOSINOPHILS 1.3 % (0-7); HEMATOCRIT 32.5 % (36.0-48.0); HEMOGLOBIN 10.6 g/dL (12-16); IMMATURE GRANULOCYTES 0.2 % (0-5); MCH 30.6 pg (26.0-34.0); MCHC 32.6 g/dL (31.0-37.0); MCV 93.9 fL (80.0-100.0); MONOCYTES 15.7 % (2-11); NEUTROPHILS 64.6 % (40-80); PLATELET COUNT 139 10x3/uL (130-400); RBC 3.46 10x6/uL (4.00-5.40); RDW 12.5 % (11.5-14.5)
[2018-10-18 07:12] LABS: WBC 5.4 10x3/uL (4.8-10.8)
[2018-10-18 07:28] LABS: ALBUMIN 3.3 g/dL (3.4-5.0); ALKALINE PHOSPHATASE 36 U/L (46-116); BILIRUBIN - TOTAL 0.35 mg/dL (0.2-1.3); CALC OSMOLALITY 285 mosm/kg (275-300); CALCIUM 7.3 mg/dL (8.5-10.1); CARBON DIOXIDE 26.7 mmol/L (21.0-32.0); CHLORIDE - SERUM 108 mmol/L (98-107); CREATININE - SERUM 0.6 mg/dL (0.6-1.3); GLUCOSE 120 mg/dL (74-106); POTASSIUM - SERUM 3.7 mmol/L (3.5-5.1); PROTEIN - SERUM 6.1 g/dL (6.4-8.2); SODIUM 143 mmol/L (136-145); UREA NITROGEN 12 mg/dL (7-18); eGFR NON AFRICAN AMERICAN > 90 mL/min (90-120)
[2018-10-18 07:30] LABS: ALT (SGPT) 8 U/L (10-68)
--- NOTE | 2018-10-18 08:50 | NUR ---
PT AOX4 RESP EVEN AND NONLABORED PT DENIES NEEDS AT THIS TIME IV TO LEFT AC PATENT AND INTACT AT THIS TIME SRX2 BED AT LOWEST SETTING CALL LIGHT WITHIN REACH WILL CONTINUE TO MONITOR
--- NOTE | 2018-10-18 19:15 | NUR ---
RECEIVED CARE FROM DAY NURSE. SITTING IN BED USING TABLET. REPORTS NO NEEDS A THIS TIME. CALL LIGHT AT SIDE. IV INFUSING PER ORDER TO LEFT AC.
--- NOTE | 2018-10-19 01:26 | NUR ---
PATIENT IN BED AWAKE IN BED WITH TV ON. NO S/S OF DISTRESS. RESPRATIONS EVEN AND UNLABORED, TV ON, LOOKING AT PHONE,
[2018-10-19 04:00] VITALS: BP 153/71
[2018-10-19 05:10] LABS: BASOPHILS 0 % (0-2); EOSINOPHILS 2.5 % (0-7); HEMATOCRIT 31.9 % (36.0-48.0); HEMOGLOBIN 10.5 g/dL (12-16); IMMATURE GRANULOCYTES 0.2 % (0-5); MCH 30.9 pg (26.0-34.0); MCHC 32.9 g/dL (31.0-37.0); MCV 93.8 fL (80.0-100.0); MONOCYTES 12.4 % (2-11); NEUTROPHILS 65.9 % (40-80); PLATELET COUNT 130 10x3/uL (130-400); RDW 12.4 % (11.5-14.5); WBC 5.2 10x3/uL (4.8-10.8)
[2018-10-19 05:27] LABS: ALKALINE PHOSPHATASE 40 U/L (46-116); ALT (SGPT) 10 U/L (10-68); BILIRUBIN - TOTAL 0.31 mg/dL (0.2-1.3); CALC OSMOLALITY 283 mosm/kg (275-300); CALCIUM 7.2 mg/dL (8.5-10.1); CARBON DIOXIDE 26.8 mmol/L (21.0-32.0); CHLORIDE - SERUM 107 mmol/L (98-107); CREATININE - SERUM 0.6 mg/dL (0.6-1.3); GLUCOSE 144 mg/dL (74-106); POTASSIUM - SERUM 3.4 mmol/L (3.5-5.1); PROTEIN - SERUM 5.6 g/dL (6.4-8.2); SODIUM 141 mmol/L (136-145); UREA NITROGEN 12 mg/dL (7-18); eGFR NON AFRICAN AMERICAN > 90 mL/min (90-120)
[2018-10-19 09:24] VITALS: BP 146/80
[2018-10-19 13:06] VITALS: BP 129/69
--- NOTE | 2018-10-19 13:18 | NUR ---
rehab prescreen: consult noted will monitor for stability. will need to see pt level of function will eval after physical therapy see the pt. will follow and monitor progress. thank you for this eval. geronimo wilde lpn clinical liasion
[2018-10-19 17:18] VITALS: BP 158/70
--- NOTE | 2018-10-19 19:40 | NUR ---
LYING IN BED PLAYING ON IPAD. ALERT AND ORIENTED X4. [place]. RESP EVEN AND NONLABORED. NO DISTRESS. O2 @ 2L/C. SCDS ON BILAT. TELEMETRY SHOWS SR. NS @ 75 ML/HR INFUSING IN LT HAND WITHOUT DIFF. DENIES PAIN AT THIS TIME. CONTACT ISO IN USE. SR ELEVATED X2. CL IN REACH. NO DISTRESS.
[2018-10-19 20:00] VITALS: BP 165/71
[2018-10-20] VITALS (7 sets, daily range): BP systolic 120–170; BP diastolic 65–78
--- NOTE | 2018-10-20 00:37 | NUR ---
RESTING QUIETLY WITH EYES CLOSED. CHEST RISING AND FALLING EVENLY. NO DISTRESS. CL IN REACH.
[2018-10-20 04:40] LABS: BASOPHILS 0 % (0-2); EOSINOPHILS 3.1 % (0-7); HEMATOCRIT 32.6 % (36.0-48.0); HEMOGLOBIN 10.6 g/dL (12-16); IMMATURE GRANULOCYTES 0.2 % (0-5); LYMPHOCYTES 18.3 % (15-50); MCH 30.3 pg (26.0-34.0); MCHC 32.5 g/dL (31.0-37.0); MCV 93.1 fL (80.0-100.0); MEAN PLATELET VOLUME 9.9 fL (7.4-10.4); MONOCYTES 8.7 % (2-11); NEUTROPHILS 69.7 % (40-80); PLATELET COUNT 131 10x3/uL (130-400); RDW 12.3 % (11.5-14.5); WBC 6.1 10x3/uL (4.8-10.8)
[2018-10-20 05:13] LABS: ALBUMIN 2.9 g/dL (3.4-5.0); ALKALINE PHOSPHATASE 45 U/L (46-116); ALT (SGPT) 8 U/L (10-68); BILIRUBIN - TOTAL 0.38 mg/dL (0.2-1.3); CALC OSMOLALITY 280 mosm/kg (275-300); CARBON DIOXIDE 26.6 mmol/L (21.0-32.0); CHLORIDE - SERUM 105 mmol/L (98-107); CREATININE - SERUM 0.6 mg/dL (0.6-1.3); GLUCOSE 160 mg/dL (74-106); POTASSIUM - SERUM 3.8 mmol/L (3.5-5.1); PROTEIN - SERUM 5.7 g/dL (6.4-8.2); SODIUM 140 mmol/L (136-145); UREA NITROGEN 9 mg/dL (7-18); eGFR NON AFRICAN AMERICAN > 90 mL/min (90-120)
[2018-10-20 05:16] LABS: CALCIUM 6.9 mg/dL (8.5-10.1)
--- NOTE | 2018-10-20 08:00 | NUR ---
PT AOX4 RESP EVEN AND NONLABORED PT DENIES NEEDS AT THIS TIME IV TO LEFT HAND PATENT AND INTACT AT THIS TIME SRX2 BED AT LOWEST SETTING CALL LIGHT WITHIN REACH WILL CONTINUE TO MONITOR
--- NOTE | 2018-10-20 12:17 | NUR ---
OT NOTE: PT REQUIRED MIN ASSIST WITH TOILET HYGIENE AND MIN ASSIST WITH PULLING UP BRIEFS; MIN ASSIST TO MANAV GOWN AND MOD ASSIST TO MANAV SOCKS. BED MOB WITH MIN ASSIST; ABLE TO AMB WITH RW TO IMPROVE FUNCTIONAL ENDURANCE. WANTING TO SIT UP IN CHAIR VS BACK TO BED. CONT TO C/O WAVES OF NAUSEA, BUT DOING BETTER TODAY. JENNY REED, OTR/L
--- NOTE | 2018-10-20 19:00 | NUR ---
PT ALERT AND ORIENTED WHEN ENTERING THE ROOM. ASSISTED PT WITH BED VERMA. PT STATES BACK BUT IS "TIED OVER" UNTIL SCHEDULED 9 PM MEDS. NO DISTRESS NOTED. CALL LIGHT IN REACH.
--- NOTE | 2018-10-20 21:28 | NUR ---
CHECKED PT BS. 153. PT CHECKED WITH PERSONAL MONITOR, 144. PT DECLINED INSULIN AND REQUESTED LONG ACTING LANTUS AT THIS TIME. TOLERATED HS MEDICATIONS. NO OTHER ISSUES AT THIS TIME. CALL LIGHT IN REACH.
[2018-10-21 00:38] VITALS: BP 107/79
--- NOTE | 2018-10-21 02:00 | NUR ---
PT LYING IN BED RESTING, NO SIGNS OF DISTRESS. DENIES NEEDS. WILL CONTINUE TO MONITOR
[2018-10-21 04:51] LABS: BASOPHILS 0.2 % (0-2); EOSINOPHILS 2.8 % (0-7); HEMOGLOBIN 10.8 g/dL (12-16); IMMATURE GRANULOCYTES 0.2 % (0-5); LYMPHOCYTES 16.3 % (15-50); MCH 31.3 pg (26.0-34.0); MCHC 33.8 g/dL (31.0-37.0); MCV 92.8 fL (80.0-100.0); MEAN PLATELET VOLUME 10.2 fL (7.4-10.4); MONOCYTES 8.7 % (2-11); NEUTROPHILS 71.8 % (40-80); PLATELET COUNT 143 10x3/uL (130-400); RBC 3.45 10x6/uL (4.00-5.40); RDW 12.1 % (11.5-14.5); WBC 6.5 10x3/uL (4.8-10.8)
[2018-10-21 05:06] VITALS: BP 185/78
[2018-10-21 05:07] LABS: ALBUMIN 2.9 g/dL (3.4-5.0); ALKALINE PHOSPHATASE 43 U/L (46-116); ALT (SGPT) 8 U/L (10-68); BILIRUBIN - TOTAL 0.34 mg/dL (0.2-1.3); CALC OSMOLALITY 285 mosm/kg (275-300); CALCIUM 7.4 mg/dL (8.5-10.1); CARBON DIOXIDE 31.4 mmol/L (21.0-32.0); CHLORIDE - SERUM 106 mmol/L (98-107); CREATININE - SERUM 0.6 mg/dL (0.6-1.3); GLUCOSE 126 mg/dL (74-106); POTASSIUM - SERUM 3.6 mmol/L (3.5-5.1); PROTEIN - SERUM 5.5 g/dL (6.4-8.2); SODIUM 143 mmol/L (136-145); UREA NITROGEN 9 mg/dL (7-18); eGFR NON AFRICAN AMERICAN > 90 mL/min (90-120)
[2018-10-21 09:07] VITALS: BP 186/74
[2018-10-21 12:57] VITALS: BP 166/69
--- NOTE | 2018-10-21 19:14 | NUR ---
PATIENT IN ROOM, SKIN W/D TO TOUCH, COLOR PINK, RESP. REGULAR AND EVEN AT 18. IV NS INF. AT 75 VIA LEFT HAND. C/L WITHIN REACH AND SR'S UP X'S DENIES C/O PAIN WHEN ASKED.
--- NOTE | 2018-10-21 19:25 | NUR ---
LYING IN BED USING IPAD. ALERT AND ORIENTED X4. TALKATIVE WITH STAFF. ASSISTED UP TO BR TO VOID. WEAKNESS NOTED. GAIT UNSTEADY AND SLOW. SOB WITH MIN EXERTION. O2 @ 2L/NC. BRUISE NOTED TO RT AC. SCDS IN USE. TELEMETRY SHOWS SR WITH RATE OF 68. NS @ 75 ML/HR INFUSING IN LT HAND WITHOUT DIFF. SR ELEVATED X2. CL IN REACH. CONTACT ISO IN USE.
--- NOTE | 2018-10-21 19:40 | NUR ---
PT RESTING IN BED WITH EYES OPEN. RESPIRATIONS ARE EVEN AND UNLABORED. BS ACTIVE X 4. PT REPORTS BM TODAY. TELEMETRY NOTED. PT DENIES PRESENCE OF PAIN N/V AT THIS TIME. BED IS IN LOWEST POSITION. CALL LIGHT ARE WITHIN REACH. PT DENIES FURTHER ENEDS.
[2018-10-21 19:51] VITALS: BP 172/72
[2018-10-21 23:57] VITALS: BP 183/73
[2018-10-22 04:00] VITALS: BP 170/75
[2018-10-22 04:56] LABS: BASOPHILS 0.2 % (0-2); EOSINOPHILS 2.5 % (0-7); HEMATOCRIT 32.7 % (36.0-48.0); HEMOGLOBIN 10.9 g/dL (12-16); IMMATURE GRANULOCYTES 0.2 % (0-5); LYMPHOCYTES 19.9 % (15-50); MCHC 33.3 g/dL (31.0-37.0); MCV 92.9 fL (80.0-100.0); MEAN PLATELET VOLUME 10.3 fL (7.4-10.4); MONOCYTES 8.6 % (2-11); NEUTROPHILS 68.6 % (40-80); PLATELET COUNT 156 10x3/uL (130-400); RBC 3.52 10x6/uL (4.00-5.40); RDW 12.4 % (11.5-14.5); WBC 6.4 10x3/uL (4.8-10.8)
[2018-10-22 05:17] LABS: ALKALINE PHOSPHATASE 47 U/L (46-116); BILIRUBIN - TOTAL 0.31 mg/dL (0.2-1.3); CALC OSMOLALITY 286 mosm/kg (275-300); CALCIUM 7.4 mg/dL (8.5-10.1); CARBON DIOXIDE 32.1 mmol/L (21.0-32.0); CHLORIDE - SERUM 104 mmol/L (98-107); CREATININE - SERUM 0.6 mg/dL (0.6-1.3); GLUCOSE 167 mg/dL (74-106); POTASSIUM - SERUM 3.3 mmol/L (3.5-5.1); PROTEIN - SERUM 5.8 g/dL (6.4-8.2); SODIUM 143 mmol/L (136-145); UREA NITROGEN 7 mg/dL (7-18); eGFR NON AFRICAN AMERICAN > 90 mL/min (90-120)
[2018-10-22 05:31] LABS: ALT (SGPT) 14 U/L (10-68)
--- NOTE | 2018-10-22 08:15 | NUR ---
PT AAOX4 RESP EVEN AND NONLABORED, NO SIGNS OF DISTRES NOTED, REQUESTING PAIN MEDS WILL CHECK EMAR AND FOLLOW PROTOCOL, CL IN REACH
[2018-10-22 08:39] VITALS: BP 149/86
[2018-10-22] MEDS ORDERED: LEVOFLOXACIN500 MG PO (11:53)
[2018-10-22] MEDS ORDERED: FLAGYL500 MG PO (11:53)
[2018-10-22] MEDS ORDERED: MIRALAX17 GM PO (11:54)
--- NOTE | 2018-10-22 11:57 | NUR ---
NUTRITION F//U PT TOLERATING DIABETIC DIET. 75% INTAKE RECENT MEALS. WILL CONTINUE TO PROVIDE DIET, MONITOR PO INTAKE. RD FOLLOWING
--- NOTE | 2018-10-22 12:00 | MORECARE ---
CASE MANAGEMENT DISCHARGE SUMMARY PATIENT: SAUL NAVA UNIT: [id number] ADM DATE: 10/16/18 AGE: 83 : 33 SEX: F ROOM/BED: D.2205 AUTHOR: SUSI REDDY PHYSICIAN: REFERRING PHYSICIAN: KASEY PAULA MD DATE OF SERVICE: 10/22/18 Discharge Plan Patient Name: SAUL NAVA Facility: [facility]:[place] : 1935 Planned Disposition: Home Anticipated Discharge Date: 10/18/18 Discharge Date: Expected LOS: 2 Initial Reviewer: [email or web address] Initial Review Date: 10/16/2018 Generated: 10/22/18 1:00 pm Comments DCP- Discharge Planning Updated by [email or web address]: Elvia Patterson on 10/22/18 10:[address] Alta from inpatient rehab at [facility] called me and states they will accept patient today for rehab. I notified Dr. Wooten's INFANTRY WEAPONS OFFICER (Ingrid). Patient agrees with discharge. States I may call her daughter and let her know, but she will be here shortly. I called her daughter and left a message on her machine that her mother would be discharging to inpatient rehab today. CM will continue to follow and assist with discharge planning/needs. DCP- Discharge Planning Updated by [email or web address]: Nickie Ward on 10/16/18 6:[address] Patient Name: SAUL NAVA Admission Status: ER Accout number: [id number] Admission Date: 10-16-2018 : 1935 Admission Diagnosis: Attending: KASEY PAULA Current LOS: 1 Anticipated DC Date: 10-18-2018 Planned Disposition: Home Primary Insurance: MEDICARE A & B Discharge Planning Comments: CM met with patient to complete initial dc planning assessment. CM educated patient on the CM role and verbal consent given by patient to complete assessment. Patient lives at home with her daughter and son in law. They assist her in her care. She requires assistance getting in and out of the tub and all transportation. Her daughter or son in law transport her to and from physical therapy 3 x week. At discharge patient plans to return home with her family and feels this is a safe discharge. Patient denied known discharge needs at this time. CM will continue to follow and will assist as needed with dc plans/needs. Transportation Analyst: Nickie Ward RN, [facility] DCPIA - Discharge Planning Initial Assessment Updated by [id number]: Nickie Ward on 10/16/18 7:23 pm * Is the patient Alert and Oriented? Yes * How many steps to enter\exit or inside your home? one * PCP Dr. Rondon * Pharmacy [facility] the [facility] * Preadmission Environment Home with Family * ADLs Partial Dependent * Partial ADLs (Assistance needed) Bathing * Equipment Cane Oxygen Rolling Walker Wheelchair * List name and contact numbers for known caregivers / representatives who currently or will assist patient after discharge: Madelyn Levy - daughter - [phone] * Verbal permission to speak to the caregivers and representatives has been obtained from the patient. Yes * Community resources currently utilized Other * Please name any agencies selected above. OP therapy 3 x week. Daughter or her son in law drives her to therapy. * Additional services required to return to the preadmission environment? No * Can the patient safely return to the preadmission environment? Yes * Has this patient been hospitalized within the prior 30 days at any hospital? No Coverage Notice Reviewer: [id number] Sarah Patterson Notice Issued Date-Time: 10/22/2018 11:46 Notice Type: IM Discharge Notice Notice Delivered To: Patient Relationship to Patient: Self Senior Buyer Name: Delivery Method: HAND - Hand Delivered Nydia Days: Prior Verbal Notification: Recipient Understood Notice: Yes Recipient Signature: Yes Med Rec Note Co-signed by Attending: Coverage Notice Comment: IMM explained, signed, copy given, original placed in MR Last DP export: 10/16/18 6:28 Patient Name: SAUL NAVA Page [id number] at 1200 All edits/amendments must be made on the electronic document DICTATION DATE: 10/22/18 1200 MEAT PICKLER: HUNTER 10/22/18 1200 RPT#: [id number] DC DATE: STATUS: ADM IN [facility] [address] [place] [address] END OF REPORT
--- NOTE | 2018-10-22 14:10 | NUR ---
OT NOTE: PERFORMED BED MOB WITH MIN ASSIST; MIN/MOD ASSIST FOR DONNING BRIEF IN BED; SIT TO STAND WITH MIN ASSIST; AMB WITH USE OF RW X 100 FT AND MIN ASSIST FOR BALANCE. IN ROOM AMBULATION WITH HOBBING PRESS OPERATOR ; TOILET TRANSFER WITH MIN ASSIST; HYGIENE WITH SET UP; MIN ASSIST FOR CLOTHING MGMT. BACK IN BED WITH MIN ASSIST. JENNY REED, OTR/L
[2018-10-22 15:15] VITALS: BP 143/83
--- NOTE | 2018-10-22 16:16 | NUR ---
IV DC AT THIS TIME WITH CATH INTACT, DC INSTRUCTIONS GIVEN PT VEABLIZES UNDERSTANDING FAMILY PRESENT, LEFT VIA WHEELCHAIR TO INPATIENT REHAB IN STABLE CONDITION VIA HOSPTIAL STAFF
--- NOTE | 2018-10-22 16:24 | MORECARE ---
CASE MANAGEMENT DISCHARGE SUMMARY PATIENT: SAUL NAVA UNIT: [id number] ADM DATE: 10/16/18 AGE: 83 : 33 SEX: F ROOM/BED: D.2205 AUTHOR: SUSI REDDY PHYSICIAN: REFERRING PHYSICIAN: KASEY PAULA MD DATE OF SERVICE: 10/22/18 Discharge Plan Patient Name: SAUL NAVA Facility: [facility]:[place] : 1935 Planned Disposition: Home Anticipated Discharge Date: 10/18/18 Discharge Date: 10/22/2018 Expected LOS: 2 Initial Reviewer: [email or web address] Initial Review Date: 10/16/2018 Generated: 10/22/18 5:23 pm Comments DCP- Discharge Planning Updated by [id number]: Elvia Patterson on 10/22/18 10:[address] Alta from inpatient rehab at [facility] called me and states they will accept patient today for rehab. I notified Dr. Wooten's INNERSOLE FITTER (Ingrid). Patient agrees with discharge. States I may call her daughter and let her know, but she will be here shortly. I called her daughter and left a message on her machine that her mother would be discharging to inpatient rehab today. CM will continue to follow and assist with discharge planning/needs. DCP- Discharge Planning Updated by [email or web address]: Nickie Ward on 10/16/18 6:[address] Patient Name: SAUL NAVA Admission Status: ER Accout number: [id number] Admission Date: 10-16-2018 : 1935 Admission Diagnosis: Attending: KASEY PAULA Current LOS: 1 Anticipated DC Date: 10-18-2018 Planned Disposition: Home Primary Insurance: MEDICARE A & B Discharge Planning Comments: CM met with patient to complete initial dc planning assessment. CM educated patient on the CM role and verbal consent given by patient to complete assessment. Patient lives at home with her daughter and son in law. They assist her in her care. She requires assistance getting in and out of the tub and all transportation. Her daughter or son in law transport her to and from physical therapy 3 x week. At discharge patient plans to return home with her family and feels this is a safe discharge. Patient denied known discharge needs at this time. CM will continue to follow and will assist as needed with dc plans/needs. Heater Operator Helper: Nickie Ward RN, [facility] DCPIA - Discharge Planning Initial Assessment Updated by [email or web address]: Nickie Ward on 10/16/18 7:23 pm * Is the patient Alert and Oriented? Yes * How many steps to enter\exit or inside your home? one * PCP Dr. Rondon * Pharmacy [facility] the [facility] * Preadmission Environment Home with Family * ADLs Partial Dependent * Partial ADLs (Assistance needed) Bathing * Equipment Cane Oxygen Rolling Walker Wheelchair * List name and contact numbers for known caregivers / representatives who currently or will assist patient after discharge: Madelyn Levy - daughter - [phone] * Verbal permission to speak to the caregivers and representatives has been obtained from the patient. Yes * Community resources currently utilized Other * Please name any agencies selected above. OP therapy 3 x week. Daughter or her son in law drives her to therapy. * Additional services required to return to the preadmission environment? No * Can the patient safely return to the preadmission environment? Yes * Has this patient been hospitalized within the prior 30 days at any hospital? No Coverage Notice Reviewer: [id number] Sarah Patterson Notice Issued Date-Time: 10/22/2018 11:46 Notice Type: IM Discharge Notice Notice Delivered To: Patient Relationship to Patient: Self Taste Tester Name: Delivery Method: HAND - Hand Delivered Nydia Days: Prior Verbal Notification: Recipient Understood Notice: Yes Recipient Signature: Yes Med Rec Note Co-signed by Attending: Coverage Notice Comment: IMM explained, signed, copy given, original placed in MR Last DP export: 10/22/18 11:00 am Patient Name: SAUL NAVA Page [id number] at 1624 All edits/amendments must be made on the electronic document DICTATION DATE: 10/22/181622 SEMICONDUCTOR WAFERS MARKER: HUNTER 10/22/181622 RPT#: [id number] DC DATE:10/22/18 STATUS: DIS IN [facility] [address] [place] [address] END OF REPORT
== END 2018-10-22 16:17 | DRG 690 ==
LOC: D.ER 12:26 → D.EDHOLD 16:24 → D.MS 16:24
PROVIDERS: Family Medicine; ADMIT Emergency Medicine
DX: N39.0 Urinary tract infection, site not specified (principal); K57.32 Diverticulitis of large intestine without perforation or abscess without bleeding; J98.11 Atelectasis; E11.65 Type 2 diabetes mellitus with hyperglycemia; I10 Essential (primary) hypertension; I25.10 Atherosclerotic heart disease of native coronary artery without angina pectoris; G20 Parkinson's disease; F02.80 Dementia in other diseases classified elsewhere, unspecified severity, without behavioral disturbance, psychotic disturbance, mood disturbance, and anxiety; E86.0 Dehydration; B96.20 Unspecified Escherichia coli [E. coli] as the cause of diseases classified elsewhere; Z86.73 Personal history of transient ischemic attack (TIA), and cerebral infarction without residual deficits

== ENCOUNTER 2018-10-22 16:41 | Inpatient (IN) | payer MEDICARE ==
[~2018-10-22] VITALS: Ht 157.5 cm; Wt 68.0 kg
--- NOTE | 2018-10-22 14:35 | NUR ---
PT HAS ARRIVED ON FLOOR BY BED. CL IN REACH. PT DENIES NEEDS OR PAIN. FAMILY WITH PT.
[~2018-10-22 16:41] MED LIST changes: +FLAGYL500 MG PO; +LEVOFLOXACIN500 MG PO; +MIRALAX17 GM PO
[2018-10-22 19:32] VITALS: BP 167/80; BMI 27.5
--- NOTE | 2018-10-22 19:45 | NUR ---
ADMITTED TO REHAB WITH DX OF UTI DEBILITY AND HISTORY OF DIVERTICULITIS. AWAKE AND ALERT. ORIENTED X 4. RESPIRATIONS UNLABORED. NO C/O PAIN. CONTACT ISOLATION IN PLACE. ORIENTED TO CALL LIGHT USE. NO DISTRESS N0TED.
--- NOTE | 2018-10-23 00:52 | NUR ---
RESTING IN BED USING IPAD. NO C/O DISCOMFORTS. CALL LIGHT IN REACH.
--- NOTE | 2018-10-23 06:06 | NUR ---
RESTING IN BED. SIGNED BED ALARM WAIVER. STATES SHE IS CONCERNED ABOUT HER URINARY FREQUENCTY, URGENCY AND LEAKING. NOTE LEFT FOR DR PAULA.
[2018-10-23 07:17] LABS: CALC OSMOLALITY 277 mosm/kg (275-300); CALCIUM 8.6 mg/dL (8.5-10.1); CARBON DIOXIDE 31.8 mmol/L (21.0-32.0); CHLORIDE - SERUM 101 mmol/L (98-107); CREATININE - SERUM 0.5 mg/dL (0.6-1.3); GLUCOSE 176 mg/dL (74-106); POTASSIUM - SERUM 3.7 mmol/L (3.5-5.1); SODIUM 138 mmol/L (136-145); UREA NITROGEN 8 mg/dL (7-18); eGFR NON AFRICAN AMERICAN > 90 mL/min (90-120)
[2018-10-23 07:32] LABS: BASOPHILS 0.1 % (0-2); EOSINOPHILS 1.5 % (0-7); HEMATOCRIT 35.3 % (36.0-48.0); IMMATURE GRANULOCYTES 0.1 % (0-5); LYMPHOCYTES 16.4 % (15-50); MCH 31.1 pg (26.0-34.0); MCV 91.5 fL (80.0-100.0); MEAN PLATELET VOLUME 10.3 fL (7.4-10.4); MONOCYTES 8.4 % (2-11); NEUTROPHILS 73.5 % (40-80); PLATELET COUNT 183 10x3/uL (130-400); RBC 3.86 10x6/uL (4.00-5.40); RDW 12.3 % (11.5-14.5); WBC 7.8 10x3/uL (4.8-10.8)
[2018-10-23 08:00] VITALS: BP 192/93
[2018-10-23 08:56] VITALS: Ht 157.5 cm; Wt 68.0 kg
--- NOTE | 2018-10-23 14:02 | NUR ---
LAYING IN BED IN HER ROOM WATCHING IPAD. DENIES NEEDS OR C/O. STILL ON ISOLATION. CALL LIGHT IN REACH
--- NOTE | 2018-10-23 19:48 | NUR ---
AWAKE AND ALERT RESTING IN BED. RESPIRATIONS UNLABORED. UP AD HÉCTOR IN ROOM. NO C/O PAIN. NO DISTRESS NOTED.
[2018-10-23 19:55] VITALS: BP 134/83
--- NOTE | 2018-10-24 02:15 | NUR ---
RESTING IN BED WITH NO DISTRESS NOTED. CALL LIGHT IN REACH.
[2018-10-24 08:35] LABS: BASOPHILS 0.1 % (0-2); HEMOGLOBIN 11.3 g/dL (12-16); IMMATURE GRANULOCYTES 0.1 % (0-5); LYMPHOCYTES 24.7 % (15-50); MCH 30.7 pg (26.0-34.0); MCHC 33.2 g/dL (31.0-37.0); MCV 92.4 fL (80.0-100.0); MEAN PLATELET VOLUME 10.1 fL (7.4-10.4); MONOCYTES 9.9 % (2-11); NEUTROPHILS 63.2 % (40-80); PLATELET COUNT 178 10x3/uL (130-400); RBC 3.68 10x6/uL (4.00-5.40); RDW 12.5 % (11.5-14.5); WBC 6.9 10x3/uL (4.8-10.8)
[2018-10-24 08:52] LABS: CALC OSMOLALITY 286 mosm/kg (275-300); CALCIUM 8.2 mg/dL (8.5-10.1); CARBON DIOXIDE 31.9 mmol/L (21.0-32.0); CHLORIDE - SERUM 102 mmol/L (98-107); CREATININE - SERUM 0.7 mg/dL (0.6-1.3); GLUCOSE 147 mg/dL (74-106); POTASSIUM - SERUM 3.9 mmol/L (3.5-5.1); SODIUM 142 mmol/L (136-145); UREA NITROGEN 15 mg/dL (7-18); eGFR NON AFRICAN AMERICAN 84 mL/min (90-120)
[2018-10-24 09:50] VITALS: BP 174/88
--- NOTE | 2018-10-24 11:12 | NUR ---
PATIENT ADMITTED TO REHAB FROM ACUTE FLOOR. DR. CHRISTIE IS HER PCP. SHE LIVES AT HOME WITH FAMILY. DME AT HOME IS A CANE, WALKER, WHEELCHAIR AND O2. DISCHARGE PLANS ARE FOR HER TO RETURN BACK HOME. WILL CONTINUE TO FOLLOW WITH PATIENT.
--- NOTE | 2018-10-24 12:19 | NUR ---
SITTING UP IN ROOM EATING LUNCH. DENIES NEEDS. CALL LIGHT IN REACH
--- NOTE | 2018-10-24 15:31 | NUR ---
RESTING QUIETLY IN BED. BED WAIVER SIGNED, GETS UP TO USE RESTROOM AT TIMES BY SELF. PAIN CONTROLLED WITH CURRENT PAIN MEDS. HAS GLUCOSE MONITORING UNIT ON [facility] FOR CONTINUOUS MONITORING. CALL LIGHT IN REACH
--- NOTE | 2018-10-24 15:42 | NUR ---
BED BATH GIVEN. SHE CAN ROLL SIDE/SIDE WITH ASST. SOB WITH MINIMAL EXERTION. STILL WEARING OXYGEN AROUND THE CLOCK. BLE WRAPED. 4+ EDEMA TO BLE. CALL LIGHT IN REACH
[2018-10-24 19:38] VITALS: BP 148/70
--- NOTE | 2018-10-24 19:39 | NUR ---
AWAKE AND ALERT. RESTING IN BED USING IPAD. RESPIRATIONS UNLABORED. DENIES PAIN. STATES "I HAD A PRETTY GOOD DAY". NO DISTRESS NOTED.
--- NOTE | 2018-10-25 03:32 | NUR ---
RESTING IN BED WITH RESPIRATIONS UNLABORED. NO DISTRESS NOTED.
[2018-10-25 08:00] VITALS: BP 155/71
--- NOTE | 2018-10-25 09:59 | NUR ---
LAYING IN BED IN ROOM WATCHING MOVIE. DENIES NEEDS OR C/O. CALL LIGHT IN REACH
--- NOTE | 2018-10-25 16:29 | NUR ---
SITTING ON SIDE OF BED WATCHING IPAD. DENIES NEEDS. DENIES INCREASED PAIN. CALL LIGHT IN REACH
[2018-10-25 19:27] VITALS: BP 138/63
--- NOTE | 2018-10-25 22:16 | NUR ---
GREETED PATIENT AND INTRODUCED MYSELF HER NURSE FOR THE EVENING. PATIENT IS SITTING UP IN BED WATCHING TV. O2 AT 2L VIA NC. PATIENT DENIES ANY PAIN OR ANY FURTHER NEEDS AT THIS TIME. CALL LIGHT IN REACH. BED IN LOWEST POSITION.
--- NOTE | 2018-10-25 22:40 | NUR ---
PATIENT AWAKE SITTING UP IN BED WATCHING TV. 02 AT 2L VIA NC IN USE. RESPIRATIONS EVEN. NO SIGNS OF DISTRESS. CALL LIGHT IN REACH. BED IN LOWEST POSITION.
--- NOTE | 2018-10-26 02:56 | NUR ---
PATIENT ASLEEP WITH EYES CLOSED LAYING ON LEFT SIDE. RESPIRATIONS EVEN. NO SIGNS OF DISTRESS. O2 AT 2L VIA NC IN USE. CALL LIGHT IN REACH. BED IN LOWEST POSITION.
--- NOTE | 2018-10-26 04:00 | NUR ---
PATIENT ASLEEP WITH EYES CLOSED LAYING ON LEFT SIDE. 02 AT 2L VIA NC IN USE. RESPIRATIONS EVEN. NO SIGNS OF DISTRESS. CALL LIGHT IN REACH.
--- NOTE | 2018-10-26 08:18 | NUR ---
PATIENT AWAKE AND ALERT THIS MORNING. SITTING UP IN BED EATING BREAKFAST. C/O PAIN "ALL OVER". MEDICATED WITH PRN NORCO 10. WILL CONTINUE TO MONITOR.
[2018-10-26 11:05] VITALS: BP 176/79
--- NOTE | 2018-10-26 13:26 | NUR ---
IHSAN 80% OF LUNCH. NO COMPLAINTS AT THIS TIME. WILL CONTINUE TO MONITOR.
[2018-10-26 19:11] VITALS: BP 159/72
--- NOTE | 2018-10-26 19:11 | NUR ---
GREETED PATIENT AND INTRODUCED MYSELF HER NURSE. PATIENT WAS SITTING UP IN BED WATCHING TV. PATIENT STATED THAT HER PAIN WAS 7/10 ALL OVER HER BODY BUT WANTED TO WAIT TO TAKE PAIN MEDICATION BECAUSE SHE WANTED TO MAKE IT LAST THROUGH THE NIGHT. CALL LIGHT IN REACH. BED IN LOWEST POSITION.
--- NOTE | 2018-10-26 22:00 | NUR ---
ASSISTED PATIENT WITH SHOWER. COMPLETE LINEN CHANGE.
--- NOTE | 2018-10-26 23:48 | NUR ---
PATIENT LAYING IN BED WATCHING HER IPAD. PATIENT STATES SHE IS FEELING SO MUCH BETTER SINCE SHE HAD HER SHOWER AND A PAIN PILL. DENIES ANY FURTHER NEEDS AT THIS TIME. CALL LIGHT IN REACH. BED IN LOWEST POSITION.
--- NOTE | 2018-10-27 02:22 | NUR ---
PATIENT ASLEEP WITH EYES CLOSED LAYING ON LEFT SIDE. HOB AT 25 DEGREES. O2 AT 2L VIA NC IN USE. RESPIRATIONS EVEN. NO SIGNS OF DISTRESS. CALL LIGHT IN REACH.
[2018-10-27 07:40] LABS: BASOPHILS 0.1 % (0-2); EOSINOPHILS 2.6 % (0-7); HEMATOCRIT 35.5 % (36.0-48.0); HEMOGLOBIN 11.6 g/dL (12-16); IMMATURE GRANULOCYTES 0.1 % (0-5); LYMPHOCYTES 24.2 % (15-50); MCH 30.6 pg (26.0-34.0); MCHC 32.7 g/dL (31.0-37.0); MCV 93.7 fL (80.0-100.0); MEAN PLATELET VOLUME 10.1 fL (7.4-10.4); MONOCYTES 9.7 % (2-11); NEUTROPHILS 63.3 % (40-80); PLATELET COUNT 195 10x3/uL (130-400); RBC 3.79 10x6/uL (4.00-5.40); RDW 12.4 % (11.5-14.5)
[2018-10-27 07:45] LABS: ANION GAP 10.7 mmol/L (8-16); CALCIUM 8.4 mg/dL (8.5-10.1); CARBON DIOXIDE 33.4 mmol/L (21.0-32.0); CREATININE - SERUM 0.8 mg/dL (0.6-1.3); POTASSIUM - SERUM 4.1 mmol/L (3.5-5.1)
[2018-10-27 07:58] VITALS: BP 177/87
--- NOTE | 2018-10-27 09:55 | NUR ---
Pt is on a diabetic diet with 56% average po intake BM yesterday Pt is sleeping now in isolation Will add Glucerna to trays to help increase calorie intake RD following
--- NOTE | 2018-10-27 10:10 | NUR ---
SITTING UP IN BED WATCHING IPAD. DENIES NEEDS. CALL LIGHT IN REACH
--- NOTE | 2018-10-27 12:28 | NUR ---
SITTING IN WC IN ROOM EATING LUNCH. DENIES PAIN OR NEEDS. CALL LIGHT IN REACH
[2018-10-27 19:00] VITALS: BP 178/72
--- NOTE | 2018-10-27 19:25 | NUR ---
RESTING IN BED WITH RESPIRATIONS UNLABOERD. NO DISTRESS NOTED. CALL LIGHT IN REACH.
--- NOTE | 2018-10-28 00:06 | NUR ---
IN BED USING HER IPAD. NO DISTRESS NOTED.
[2018-10-28 08:00] VITALS: BP 173/787
--- NOTE | 2018-10-28 08:00 | NUR ---
SHIFT ASSMT COMPLETED.DENIES NEEDS.BREAKFAST GIVEN.CL IN REACH.
--- NOTE | 2018-10-28 12:00 | NUR ---
SITTING UP IN BED.LUNCH GIVEN.
[2018-10-28 20:00] VITALS: BP 165/75
--- NOTE | 2018-10-28 20:05 | NUR ---
AWAKE AND ALERT RESTING IN BED WITH RESPIRATIONS UNLABORED. NO DISTRESS NOTED.
--- NOTE | 2018-10-29 01:33 | NUR ---
RESTING IN BED WITH RESPIRATIONS UNLABORED. NO DISTRESS NOTED.
--- NOTE | 2018-10-29 04:03 | NUR ---
RESTING IN BED WITH EYES CLOSED. RESPIRATIONS UNLABORED. NO DISTRESS NOTED.
--- NOTE | 2018-10-29 06:09 | NUR ---
QUIET HOURS. BLOOD SUGAR 250. TREATED WITH SLIDING SCALE. NO DISTRESS NOTED.
[2018-10-29 07:36] LABS: BASOPHILS 0.3 % (0-2); EOSINOPHILS 2.9 % (0-7); HEMATOCRIT 35.3 % (36.0-48.0); HEMOGLOBIN 11.5 g/dL (12-16); IMMATURE GRANULOCYTES 0.1 % (0-5); LYMPHOCYTES 22.9 % (15-50); MCH 30.9 pg (26.0-34.0); MCHC 32.6 g/dL (31.0-37.0); MCV 94.9 fL (80.0-100.0); MEAN PLATELET VOLUME 10.1 fL (7.4-10.4); MONOCYTES 10.4 % (2-11); NEUTROPHILS 63.4 % (40-80); PLATELET COUNT 188 10x3/uL (130-400); RBC 3.72 10x6/uL (4.00-5.40); RDW 12.4 % (11.5-14.5); WBC 7.9 10x3/uL (4.8-10.8)
[2018-10-29 07:54] LABS: ANION GAP 11.1 mmol/L (8-16); CARBON DIOXIDE 30.3 mmol/L (21.0-32.0); CREATININE - SERUM 0.8 mg/dL (0.6-1.3); POTASSIUM - SERUM 4.4 mmol/L (3.5-5.1)
[2018-10-29 08:00] VITALS: BP 187/88
--- NOTE | 2018-10-29 08:00 | NUR ---
SHIFT ASSMT COMPLETED.
--- NOTE | 2018-10-29 12:00 | NUR ---
EATING LUNCH.CL IN REACH.
--- NOTE | 2018-10-29 16:00 | NUR ---
DAVID THERAPY.DENIES NEEDS.
[2018-10-29 19:00] VITALS: BP 144/77
--- NOTE | 2018-10-29 19:22 | NUR ---
GREETED PATIENT AND INTRODUCED MYSELF HER NURSE FOR EVENING. PATIENT STATES THAT SHE JUST NOT FELT VERY WELL TODAY, SAYS SHE HAS BEEN NAUSEOUS AND THATS WHY SHE DIDNT FEEL LIKE EATING. DENIES ANY FURTHER NEEDS AT THIS TIME. CALL LIGHT IN REACH. BED IN LOWEST POSITION.
--- NOTE | 2018-10-29 19:53 | RHP ---
PATIENT: SAUL NAVA MEDICAL RECORD: [id number] ACCOUNT: [id number] LOCATION:[facility] D.[id number] : 33 ADMISSION DATE: 10/22/18 REHABILITATION HISTORY AND PHYSICAL EXAMINATION POST ADMISSION PHYSICIAN EXAMINATION DATE OF ADMISSION TO THE REHAB: 10/22/2018. ADMITTING DIAGNOSES: Debility secondary to diverticulitis and ESBL in the urine. HISTORY OF PRESENT ILLNESS: The patient is an 83-year-old female patient with debility. She was admitted from the Emergency Room on 10/16/2018 with chief complaint of left lower quadrant abdominal pain, nausea, vomiting, and diarrhea. She had had some urinary frequency and urinary hesitancy at times. Her belly was somewhat soft. She did have some tenderness though over palpation of the left lower abdomen, and suprapubic areas bilaterally. A CTA of the abdomen showed diverticulitis with fatty changes in the adjacent tissues to the diverticula. A chest x-ray showed no acute changes. Her serum lactate was 2.4, blood sugar was 205. Her white count was elevated at 16.8. She was placed in the hospital. She had a UA, which did show ESBL E. coli. She was placed on Protonix, SCDs, Levaquin, Flagyl, pain control, and antiemetics. She apparently was living with her daughter and son-in-law and was moderately independent with rolling walker for ADLs and mobility prior to coming to the hospital. Currently, she is mod to max assist for ADLs and mobility. She is very weak. She has fatigue. She has poor balance and she tires easily. She definitely needs to be in better shape to hopefully return home with her family. COMORBIDITIES: In this patient include diverticulitis, abdominal pain, nausea and vomiting, dehydration, pyrexia, hypokalemia, weakness, hypertension, chronic back pain, basal cell skin cancer, CVA, Parkinson's and a seizure disorder. PAST MEDICAL HISTORY: Significant for stroke, CVA, Parkinson's. She has got a history of diabetes, coronary artery disease, chronic back pain, got a history of postherpetic neuralgia, skin cancers. PAST SURGICAL HISTORY: Includes appendectomy, cataract surgery. She has had a laparoscopic cholecystectomy. She has had coronary artery bypass grafting. She has had a hysterectomy and she has had lens implants. ALLERGIES: LOPID, METFORMIN, MACROBID, AVANDIA, AND ULTRAM. CURRENT MEDICATIONS: Include Floranex 460 mg daily, Pepcid 40 mg daily, potassium 25 mEq daily. She is on NovoLog 70/30 10 units prior to evening meal. She is on Cymbalta 20 mg daily, Plavix 75 mg daily, vitamin D 1000 units daily, Lantus 10 units q.h.s., Flagyl 500 mg t.i.d., Levaquin 500 mg daily, furosemide 20 mg daily, MiraLax 17 grams in 8 ounces of water b.i.d., Nitrostat p.r.n., Drifting 10/325 one tab t.i.d. p.r.n., Neurontin 400 mg t.i.d., Coreg 25 mg b.i.d. with meals and Sinemet 25/100 one tab t.i.d. HABITS: No alcohol or tobacco use. FAMILY HISTORY: Noncontributory. SOCIAL HISTORY: As above, hopes to return back home with her family members get HISTORY AND PHYSICAL [id number] SAUL NAVA back to her prior level of functioning. REVIEW OF SYSTEMS: GENERAL: Does complain of weakness and fatigue. HEENT: Denies cold, cough, or congestion. CARDIOVASCULAR: Denies chest pain. PHYSICAL EXAMINATION: VITAL SIGNS: Stable, afebrile. GENERAL: An elderly female, in no acute distress, alert upon exam. HEENT: Normocephalic and atraumatic. Mucosa moist. NECK: Supple. No lymphadenopathy. LUNGS: Clear at this time with no wheeze or rales. HEART: Regular rate and rhythm. No murmurs, rubs or gallops. ABDOMEN: Benign. She has no obvious tenderness at this time. No rebound, no guarding. EXTREMITIES: No clubbing, cyanosis, or edema. NEUROLOGIC: She does have noted flat affect and she does have noted proximal muscle weakness. LABORATORY DATA: White count 7.8, H&H of 12 and 35, and platelet count is 183. Sodium 138, potassium 3.7, BUN and creatinine of 8 and 0.5, and blood sugar is noted to be 176. ASSESSMENT: This is an 83-year-old female patient admitted to rehab with a working diagnosis of debility secondary to diverticulitis and ESBL in her urine. The patient has potential to make improvement. We instituted the following multidisciplinary therapies including, but not limited to physical, occupational, respiratory, speech, nutritional services, prosthetics and orthotics. Given her complex medical condition and risk for more complications, rehabilitation services cannot be provided at a low level of care such a skilled nurse facility. PLAN: 1. Admit to [facility] rehab for intensive inpatient therapy to include the following disciplines: A. Physical therapy to improve gait, all transfer skills and bed mobility to a modified independent level. B. Occupational therapy to a modified independent level. C. Case management to assist with discharge planning and placement options. D. Nutrition to assist with nutritional needs. E. Rehabilitation nursing to assist in monitoring the patient's underlying medical conditions and to assist with any type of bowel or bladder management. 2. The patient's current medication and medical care will be continued. 3. The patient will be placed on standard fall precautions. 4. The patient's estimated length of stay is approximately 7-10 days. 5. We will discuss this patient during care team staff meeting this week and will continue to follow up. TRANSINT:[id number] Voice Confirmation ID: [id number] DOCUMENT ID: [id number] PHILIP notes whether there has been none or any medical/functional change since admission: - HISTORY AND PHYSICAL [id number] HEAD,SAUL PALACIOS attests patient continues to be appropriate for IRF: - KASEY PAULA MD at 1953 CC: [id number] DICTATION DATE: 10/23/18 0851 MATERIAL CONTROL ANALYST: 10/23/18 0950 ADM IN [place] [id number] [place] [id number]
--- NOTE | 2018-10-30 00:53 | NUR ---
PATIENT ASLEEP WITH EYES CLOSED LAYING IN SUPINE POSITION. RESPIRATIONS EVEN. NO SIGNS OF DISTRESS. CALL LIGHT IN REACH. BED IN LOWEST POSITION.
--- NOTE | 2018-10-30 02:00 | NUR ---
PATIENT ASLEEP WITH EYES CLOSED. RESPIRATIONS EVEN. NO SIGNS OF DISTRESS. CALL LIGHT IN REACH.
--- NOTE | 2018-10-30 03:53 | NUR ---
PATIENT ASLEEP WITH EYES CLOSED LAYING ON LEFT SIDE. RESPIRATIONS EVEN. NO SIGNS OF DISTRESS. CALL LIGHT IN REACH.
--- NOTE | 2018-10-30 07:40 | NUR ---
RESTING QUIETLY IN BED, EYES CLOSED. NO S/S DISTRESS. CALL LIGHT IN REACH
[2018-10-30 08:00] VITALS: BP 159/75
[2018-10-30] MEDS ORDERED: LISINOPRIL10 MG PO (08:32)
--- NOTE | 2018-10-30 12:09 | NUR ---
SITTING IN WC IN ROOM. DENIES NEEDS OR C/O. STILL ON ISOLATION PRECAUTIONS. IS ALERT AND ORIENTED X4. HAS DIABETIC CONTINUOUS MONITORING UNIT TO ABD.
[2018-10-30 19:00] VITALS: BP 140/74
--- NOTE | 2018-10-30 20:03 | NUR ---
PT PLAYING GAMES ON TABLET, NO NEEDS NOTED, FLUIDS AND CALL LIGHT WITHIN REACH
--- NOTE | 2018-10-31 01:11 | NUR ---
PATIENT EYES CLOSED. RESPIRATIONS 18 & EVEN. BED LOW. ALARM WAIVER SIGNED. CALL LIGHT WITHIN REACH. WILL CONTINUE TO MONITOR.
[2018-10-31 06:03] LABS: BASOPHILS 0.2 % (0-2); EOSINOPHILS 1.7 % (0-7); HEMOGLOBIN 11.6 g/dL (12-16); IMMATURE GRANULOCYTES 0.2 % (0-5); LYMPHOCYTES 21.4 % (15-50); MCH 30.7 pg (26.0-34.0); MCHC 32.2 g/dL (31.0-37.0); MCV 95.2 fL (80.0-100.0); MEAN PLATELET VOLUME 10.2 fL (7.4-10.4); MONOCYTES 9.1 % (2-11); NEUTROPHILS 67.4 % (40-80); PLATELET COUNT 185 10x3/uL (130-400); RBC 3.78 10x6/uL (4.00-5.40); RDW 12.3 % (11.5-14.5); WBC 8.1 10x3/uL (4.8-10.8)
[2018-10-31 06:22] LABS: ANION GAP 11.1 mmol/L (8-16); CALCIUM 8.1 mg/dL (8.5-10.1); CARBON DIOXIDE 28.4 mmol/L (21.0-32.0); CREATININE - SERUM 0.8 mg/dL (0.6-1.3); POTASSIUM - SERUM 4.5 mmol/L (3.5-5.1)
[2018-10-31 08:00] VITALS: BP 150/71
[2018-10-31] MEDS ORDERED: NORCO-10 PO (08:20)
--- NOTE | 2018-10-31 10:14 | NUR ---
PATIENT DISCHARGING HOME TODAY WITH FAMILY. [facility] WILL PROVIDE THERAPY AT HOME. NO NEW DME NEEDED AT THIS TIME. DR. CHRISTIE 11/03/18 @ 2:30. PATIENT CHOICE FORM FOR HOME HEALTH AND [facility] FORMS SIGNED AND FILED IN CHART. DISCHARGE INSTRUCTIONS WITH [facility] FAXED TO PCP AND TO HOME HEALTH.
--- NOTE | 2018-10-31 13:37 | NUR ---
[facility] will deliver a standard walker to patient home.
--- NOTE | 2018-10-31 13:45 | NUR ---
DC HOME WITH ALL PERSONAL BELONGINGS. DTR CAME TO GET PT. REVIEWED MEDS. DC PLAN AND FOLLOW UP APPTS. DENIES QUESTIONS. LEFT FLOOR IN WC
--- NOTE | 2018-10-31 13:53 | NUR ---
recieved call from [facility] and they have no non rolling walker, order has been faxed to [facility].
== END 2018-10-31 15:27 | disposition home health service (06) | DRG 948 ==
LOC: D.REHAB 16:41
PROVIDERS: ADMIT Emergency Medicine
DX: R53.81 Other malaise (principal); N39.0 Urinary tract infection, site not specified; K57.92 Diverticulitis of intestine, part unspecified, without perforation or abscess without bleeding; R10.9 Unspecified abdominal pain; R11.2 Nausea with vomiting, unspecified; E86.0 Dehydration; R50.9 Fever, unspecified; E87.6 Hypokalemia; R53.1 Weakness; I10 Essential (primary) hypertension; G20 Parkinson's disease; G40.909 Epilepsy, unspecified, not intractable, without status epilepticus; G89.29 Other chronic pain; Z85.828 Personal history of other malignant neoplasm of skin; R19.7 Diarrhea, unspecified; E11.65 Type 2 diabetes mellitus with hyperglycemia; I25.10 Atherosclerotic heart disease of native coronary artery without angina pectoris

== ENCOUNTER → 2019-09-02 12:53 | Outpatient (CLI) | payer MEDICARE ==
[2018-10-23 08:56] VITALS: BMI 27.4
[~2019-09-02 12:53] MED LIST changes: +LISINOPRIL10 MG PO; +NORCO-10 PO
== END | disposition home or self-care (01) ==
LOC: D.HCCECHO 12:53 → D.HCCARDIO 13:00
PROVIDERS: ATTEND Internal Medicine Cardiovascular Disease
DX: R06.02 Shortness of breath (principal)

== ENCOUNTER → 2020-03-25 12:26 | Outpatient (CLI) | payer MEDICARE ==
[2018-10-23 08:56] VITALS: BMI 27.4
== END | disposition home or self-care (01) ==
LOC: D.HCCECHO 12:26
PROVIDERS: ATTEND Internal Medicine Cardiovascular Disease
DX: R06.02 Shortness of breath (principal)

== ENCOUNTER → 2021-01-31 13:09 | Outpatient (CLI) | payer MEDICARE ==
[2018-10-23 08:56] VITALS: BMI 27.4
== END | disposition home or self-care (01) ==
LOC: D.HCCECHO 13:00
PROVIDERS: ATTEND Internal Medicine Cardiovascular Disease
DX: I25.10 Atherosclerotic heart disease of native coronary artery without angina pectoris (principal); R07.9 Chest pain, unspecified